=== PATIENT | male | born 1945 | race Caucasian/White ===

== ENCOUNTER → 2016-08-10 | Day surgery (SDC) | payer BC ==
[2016-07-26 15:01] VITALS: BMI 29.0
[~2016-08-10] VITALS: Ht 180.3 cm; Wt 96.4 kg
[~2016-08-10] MED LIST: DILT120C43 PO; LIDOCAINE HCL 2% 2 ML VIAL (20MG/ML) ONE; LPR50X PO; MIDAZOLAM HCL 1 MG/ML 2ML VIAL ONE; ONDANSETRON INJ 2 MG/ML 2 ML VIAL ONE; PRD75 PO; PROPOFOL IV EMULSION 10 MG/ML 20 ML VIAL IV ONE; SIMV-150 PO; SODIUM CHLORIDE 0.9% 500ML 500 ML IV ONE; TRAM-10 PO
[2016-08-10 10:22] VITALS: Ht 180.3 cm; Wt 96.4 kg
--- NOTE | 2016-08-10 11:17 | Endo History and Physical ---
History & Physical Date of Service: Aug 10, 2016. Chief Complaint: SCREENING Referring Physician: ERLINDA LOONEY History of Present Illness 71 yo CM who presents for screening colonoscopy. Past Medical History Atrial Fibrillation, Arthritis, High Cholesterol, Hypertension Past Surgical History Hx Cardiac Surgery: Yes (CARDIOVERSION) Hx Internal Defibrillator: No Hx Pacemaker: No Hx Abdominal Surgery: No Hx of Implantable Prosthesis: No Hx Post-Op Nausea and Vomiting: No Hx Cancer Surgery: No Hx Thoracic Surgery: No Hx Orthopedic: Yes ([facility]) Hx Urinary Tract Surgery: No Family History None Social History Smoking Status: Current Some Day Smoker Hx Substance Use: Yes (OCCASIONAL MARIJUANA (ONCE TIME/COUPLE MONTHS)) Hx Alcohol Use: Yes (2 OZ DRINK/NIGHT) Allergies Coded Allergies: No Known Allergies (Verified , 08/10/16) Current Medications Reported Home Medications Medications Dose Route/Sig Max Daily Dose Days Date Category Cartia Xt (Diltiazem Hcl Coated Beads) 120 Mg Cap 1 Tab PO HS 07/26/16 Reported Ultram (Tramadol HCl) 50 Mg Tab 50 Mg PO Q8H PRN 11/07/14 Reported Metoprolol Tartrate 50 Mg Tab 75 Mg PO BID 11/07/14 Reported Simvastatin 10 Mg Tab 10 Mg PO QPM 11/07/14 Reported Pradaxa * (Dabigatran) 150 Mg Cap 150 Mg PO BID 06/08/11 Reported Vital Signs Weight (Kilograms): 96.36 Height (Feet): 5 Height (Inches): 11 Date Time Temp Pulse Resp B/P Pulse Ox O2 Delivery O2 Flow Rate FiO2 08/10/16 10:40 36.7 82 20 121/87 96 Room Air Physical Exam General Appearance: WD/WN, no apparent distress Respiratory/Chest: Auscultation: breath sounds normal Cardiovascular: Heart Auscultation: RRR Abdomen: Bowel Sounds: normal Inspection & Palpation: soft, non-distended, no tenderness, guarding & rebound Assessment and Plan Assessment: 71 yo CM who presents for screening colonoscopy. Plan: Proceed with colonoscopy.
--- NOTE | 2016-08-10 11:37 | Discharge Instructions ---
Endoscopy Patient Instructions Date / Procedure(s) Performed Aug 10, 2016. Colonoscopy Allergy Information Coded Allergies: No Known Allergies (Verified , 08/10/16) Discharge Date / Findings Aug 10, 2016. Diverticulosis Internal hemorrhoids Medication Instructions Stopped Medication(s): PRADAXA Restart Stopped Medication(s): OK to resume all medications today as prescribed Reported Home Medications Medications Dose Route/Sig Max Daily Dose Days Date Category Cartia Xt (Diltiazem Hcl Coated Beads) 120 Mg Cap 1 Tab PO HS 07/26/16 Reported Ultram (Tramadol HCl) 50 Mg Tab 50 Mg PO Q8H PRN 11/07/14 Reported Metoprolol Tartrate 50 Mg Tab 75 Mg PO BID 11/07/14 Reported Simvastatin 10 Mg Tab 10 Mg PO QPM 11/07/14 Reported Pradaxa * (Dabigatran) 150 Mg Cap 150 Mg PO BID 06/08/11 Reported Provider Instructions Activity Restrictions - No exercising or heavy lifting for 24 hours. - Do not drink alcohol the day of the procedure. - Do not drive a car or operate machinery until the day after the procedure. - Do not make any important decisions or sign important papers in 24 hours after the procedure. Following Day: - Return to full activity which may include returning to work/school. Diet Start your diet with liquids and light foods (jello, soup, juice, toast). Then eat your usual diet if not nauseated. Treatment For Common After Affects For mild abdominal pain, bloating, or excessive gas: - Rest - Eat lightly - Lie on right side Follow-Up Information Follow-up with ERLINDA LOONEY as scheduled Anesthesia Information What You Should Know You have had a procedure that required some medicine to reduce anxiety and discomfort. This treatment is called moderate sedation. After receiving the treatment, you may be sleepy, but you will be able to breathe on your own. The effects of the treatment may last for several hours. Follow these instructions along with Activity/Diet recommendations noted above: * Do NOT do anything where dizziness or clumsiness would be dangerous. * Rest quietly at home today, then you can be up and about tomorrow. * Have a responsible person stay with you the rest of today. * You may have had an I.V. today. If so, you may take the dressing off later today. Recommendations Call your doctor if: * Trouble breathing * Continuous vomiting for more than 24 hours * Temperature above 101 degrees * Severe abdominal pain or bloating * Pain not relieved by pain medicine ordered * There is increased drainage or redness from any incision * A large amount of rectal bleeding greater than 2-3 tablespoons. (If you had a polyp/s removed or have hemorrhoids, a small amount of blood - from the rectum is to be expected.) * You have any unanswered questions or concerns. IN THE EVENT OF A SERIOUS EMERGENCY, GO TO THE NEAREST EMERGENCY ROOM Your discharge instructions were prepared by provider Michael Cotto. Patient Instructions Signature Page Mitchell Farooq Patient (or Guardian) Signature/Date: I have read and understand the instructions given to me by my caregivers. Caregiver/RN/Doctor Signature/Date: The above-named patient and/or guardian has received patient instructions on this date. + Original Patient Signature Page (only) stays with chart. Please make copy for patient.
--- NOTE | 2016-08-10 11:44 | GI REPORT ---
Procedure Date: 08/10/2016 10:52 AM Procedure: Colonoscopy Indications: Screening for colorectal malignant neoplasm Medicines: Monitored Anesthesia Care Complications: No immediate complications. Estimated Blood Loss: Estimated blood loss: none. Procedure: Pre-Anesthesia Assessment: - Prior to the procedure, a History and Physical was performed, and patient medications and allergies were reviewed. The patient's tolerance of previous anesthesia was also reviewed. The risks and benefits of the procedure and the sedation options and risks were discussed with the patient. All questions were answered, and informed consent was obtained. Prior Anticoagulants: The patient has taken Pradaxa (dabigatran), last dose was 3 days prior to procedure. ASA Grade Assessment: II - A patient with mild systemic disease. After reviewing the risks and benefits, the patient was deemed in satisfactory condition to undergo the procedure. After I obtained informed consent, the scope was passed under direct vision. Throughout the procedure, the patient's blood pressure, pulse, and oxygen saturations were monitored continuously. The scope was introduced through the anus and advanced to the terminal ileum. The colonoscopy was performed without difficulty. The patient tolerated the procedure well. The quality of the bowel preparation was good. The terminal ileum, ileocecal valve, appendiceal orifice, and rectum were photographed. Findings: Multiple small-mouthed diverticula were found in the sigmoid colon. Non-bleeding internal hemorrhoids were found during retroflexion. The hemorrhoids were small. Impression: - Diverticulosis in the sigmoid colon. - Non-bleeding internal hemorrhoids. - No specimens collected. Recommendation: - Resume previous diet. - Continue present medications. - Repeat colonoscopy in 10 years for surveillance. - Return to primary care physician as previously scheduled. Michael Cotto, DO 08/10/2016 11:43:52 AM This report has been signed electronically. Note Initiated On: 08/10/2016 10:52 AM I attest to the content of the Intraoperative Record and orders documented therein, exceptions below
[2016-08-10 12:03] VITALS: BP 130/72; PULSE 68; O2SAT 94
--- NOTE | 2016-08-10 14:32 | Anesthesiology Progress Note ---
Anesthesia Post Op Note Date & Time Aug 10, 2016 at 14:32 Vital Signs Pain Intensity: 0 Vital Signs Past 12 Hours Date Time Temp Pulse Resp B/P Pulse Ox O2 Delivery O2 Flow Rate FiO2 08/10/16 12:03 68 16 130/72 94 Room Air 08/10/16 11:48 70 16 122/72 94 Room Air 08/10/16 11:33 82 16 123/79 94 Room Air 08/10/16 10:40 36.7 82 20 121/87 96 Room Air Notes Mental Status: alert / awake / arousable, participated in evaluation Pt Amnestic to Procedure: Yes Nausea / Vomiting: adequately controlled Pain: adequately controlled Airway Patency, RR, SpO2: stable & adequate BP & HR: stable & adequate Hydration State: stable & adequate Anesthetic Complications: no major complications apparent
== END | disposition home or self-care (01) ==
LOC: C.GI 10:09
PROVIDERS: ATTEND Internal Medicine
DX: Z12.11 Encounter for screening for malignant neoplasm of colon (principal); K57.30 Diverticulosis of large intestine without perforation or abscess without bleeding; K64.8 Other hemorrhoids; I10 Essential (primary) hypertension; M19.90 Unspecified osteoarthritis, unspecified site; I48.91 Unspecified atrial fibrillation; E78.00 Pure hypercholesterolemia, unspecified; Z96.642 Presence of left artificial hip joint; F17.200 Nicotine dependence, unspecified, uncomplicated; Z68.29 Body mass index [BMI] 29.0-29.9, adult

== ENCOUNTER → 2017-01-11 | Outpatient (CLI) | payer BC ==
[~2017-01-11] MED LIST changes: -LIDOCAINE HCL 2% 2 ML VIAL (20MG/ML) ONE; -MIDAZOLAM HCL 1 MG/ML 2ML VIAL ONE; -ONDANSETRON INJ 2 MG/ML 2 ML VIAL ONE; -PROPOFOL IV EMULSION 10 MG/ML 20 ML VIAL IV ONE; -SODIUM CHLORIDE 0.9% 500ML 500 ML IV ONE
[2017-01-11 12:18] LABS: ESTIMATED AVERAGE GLUCOSE 143 mg/dl; HA1C FLAG Normal (Normal)
[2017-01-11 12:29] LABS: ALT/SGPT 19 U/L (12-78); AST/SGOT 14 U/L (15-37); BLOOD UREA NITROGEN 12 mg/dl (7-18); BUN/CREATININE RATIO 13.6 (10-20); CALCIUM 9.4 mg/dl (8.5-10.1); CARBON DIOXIDE 30 mmol/L (21-32); CHLORIDE 102 mmol/L (98-107); GLUCOSE 151 mg/dl (70-99); POTASSIUM 4.3 mmol/L (3.5-5.1); SODIUM 137 mmol/L (136-145)
[2017-01-11 12:32] LABS: CHOLESTEROL 147 mg/dl (0-200); HDL CHOLESTEROL 37 mg/dl; LDL CHOLESTEROL CALCULATED 75 mg/dl; TRIGLYCERIDES 174 mg/dl (0-150); VERY LOW DENSITY LIPOPROT CALC 35 mg/dl
== END | disposition home or self-care (01) ==
LOC: C.LAB1850 10:08
PROVIDERS: ATTEND Internal Medicine
DX: R73.9 Hyperglycemia, unspecified (principal); E78.5 Hyperlipidemia, unspecified

== ENCOUNTER → 2017-05-10 | Outpatient (CLI) | payer BC ==
[2017-05-10 13:38] LABS: ESTIMATED AVERAGE GLUCOSE 148 mg/dl; HA1C FLAG Normal (Normal)
[2017-05-10 13:48] LABS: BLOOD UREA NITROGEN 13 mg/dl (7-18); BUN/CREATININE RATIO 14.1 (10-20); CALCIUM 9.3 mg/dl (8.5-10.1); CARBON DIOXIDE 28 mmol/L (21-32); CHLORIDE 104 mmol/L (98-107); CREATININE 0.94 mg/dl (0.60-1.40); GLUCOSE 134 mg/dl (70-99); POTASSIUM 4.1 mmol/L (3.5-5.1); PROSTATE SPECIFIC ANTIGEN 0.992 ng/ml (0.000-4.000); SODIUM 137 mmol/L (136-145)
[2017-05-10 15:12] LABS: LYME DISEASE AB IGG NEG (NEG); LYME DISEASE AB IGM NEG (NEG)
== END | disposition home or self-care (01) ==
LOC: C.LAB1850 11:46
PROVIDERS: ATTEND Internal Medicine
DX: R73.9 Hyperglycemia, unspecified (principal); M25.559 Pain in unspecified hip; Z12.5 Encounter for screening for malignant neoplasm of prostate

== ENCOUNTER → 2017-09-05 | Outpatient (CLI) | payer OTHER ==
[2017-09-05 12:34] LABS: ALBUMIN 3.9 gm/dl (3.4-5.0); ALT/SGPT 26 U/L (12-78); AST/SGOT 26 U/L (15-37); BLOOD UREA NITROGEN 16 mg/dl (7-18); CALCIUM 9.1 mg/dl (8.5-10.1); CARBON DIOXIDE 28 mmol/L (21-32); CHOLESTEROL 173 mg/dl (0-200); CREATININE 1.04 mg/dl (0.60-1.40); GLUCOSE 127 mg/dl (70-99); POTASSIUM 4.1 mmol/L (3.5-5.1); SODIUM 134 mmol/L (136-145)
[2017-09-05 12:35] LABS: HEMOGLOBIN A1C 6.8 % (4.5-5.6)
[2017-09-05 12:36] LABS: ALKALINE PHOSPHATASE 49 U/L (45-117); LDL CHOLESTEROL CALCULATED 75 mg/dl; TOTAL PROTEIN 7.1 gm/dl (6.4-8.2)
== END | disposition home or self-care (01) ==
LOC: C.LAB1850 10:32
PROVIDERS: ATTEND Internal Medicine
DX: E78.5 Hyperlipidemia, unspecified (principal); I10 Essential (primary) hypertension; I48.91 Unspecified atrial fibrillation; R73.9 Hyperglycemia, unspecified

== ENCOUNTER → 2017-10-10 | Outpatient (CLI) | payer OTHER ==
--- NOTE | 2017-10-10 12:37 | DIAGNOSTIC IMAGING REPORT ---
CT LUNG SCREENING, LOW DOSE WITH COMPUTER-AIDED DETECTION (CAD) CLINICAL HISTORY: CURRENT SMOKER COMPARISON STUDY: No previous studies for comparison. CT DOSE: 82.82 mGycm TECHNIQUE: Low-dose helical CT was acquired without intravenous contrast from lung apices to bases and reconstructed at 2.5 mm every 2 mm. CAD was utilized for this study. A dose lowering technique was utilized adhering to the principles of ALARA. FINDINGS: Mild emphysema. No focal lung consolidations to suggest pneumonia. The central airways are patent. There are few scattered tiny subcentimeter indeterminate nodules. Dominant nodule seen within the left lower lobe on image 102. This is described below. No suspicious lytic or blastic osseous lesions. No pleural effusions. No pneumothorax. No mediastinal or hilar lymphadenopathy. Moderate coronary artery calcifications. Normal caliber thoracic aorta. The heart is normal in size. The visualized unenhanced liver, spleen, and adrenal glands are unremarkable. There is a partially visualized gallstone. Nodule 1 Category: 2 Nodule 1 Status: Baseline Nodule 1 Description: Solid Nodule 1 Lesion ID: 1 Nodule 1 Slice Number: 70 Nodule 1 Volume (mm3): 30 Nodule 1 Major Hope mm: 4.4 Nodule 1 Minor Hope mm: 3.3 IMPRESSION: 1. A few scattered subcentimeter pulmonary nodules with the largest in the left lower lobe as described above. Please refer to the recommendations below for follow-up. 2. Mild emphysema. 3. Cholelithiasis. CAD FINDINGS: Overall Lung RADS Category: 2 Lung RADS Management Recommendation: Continue annual lung cancer screening. Lung RADS Follow Up Date: 2018-10-10 Lung RADS Nodule ID: 1 Electronically signed by: Prashant Blanco M.D. 10/10/2017 12:36 PM Dictated Date/Time: 10/10/2017 12:30 PM
== END | disposition home or self-care (01) ==
LOC: C.CTS 12:05
PROVIDERS: ATTEND Internal Medicine
DX: F17.210 Nicotine dependence, cigarettes, uncomplicated (principal); R91.8 Other nonspecific abnormal finding of lung field; K80.20 Calculus of gallbladder without cholecystitis without obstruction

== ENCOUNTER → 2017-12-26 | Outpatient (CLI) | payer OTHER ==
[2017-12-26 10:07] LABS: HEMOGLOBIN A1C 6.6 % (4.5-5.6)
[2017-12-26 10:43] LABS: BLOOD UREA NITROGEN 14 mg/dl (7-18); CALCIUM 8.9 mg/dl (8.5-10.1); CARBON DIOXIDE 29 mmol/L (21-32); CREATININE 1.05 mg/dl (0.60-1.40); GLUCOSE 137 mg/dl (70-99); POTASSIUM 4.4 mmol/L (3.5-5.1); SODIUM 137 mmol/L (136-145)
== END | disposition home or self-care (01) ==
LOC: C.LAB1850 07:42
PROVIDERS: ATTEND Internal Medicine
DX: E78.5 Hyperlipidemia, unspecified (principal); R73.9 Hyperglycemia, unspecified

== ENCOUNTER 2020-09-12 12:07 | Inpatient (IN) ==
[2020-09-12] MEDS ORDERED: LIDOCAINE/EPINEPHRINE 1% 20 ML VIAL INFIL ONE (12:41)
--- NOTE | 2020-09-12 13:00 | Emergency Department Note ---
Impression & Plan Syncope, Atrial fibrillation, Facial laceration, Acute head trauma ED Provider Note NAME: GRICEL WILEY AGE: 75 SEX: M : 1945 ARRIVES VIA: Ambulance INFORMANT: [Patient][] ED PROVIDER(S): [Jared Veras MD] CHIEF COMPLAINT: Syncope HISTORY OF PRESENT ILLNESS: The patient is a 75-year-old male who presents to the ER after a syncopal spell. The patient states that around 2-1/2 hours ago he was sitting at the table with his when he began to feel dizzy and faint. He states that his saw his head drop forward and he slumped down a bit but did not truly lose consciousness. After around 20 seconds or so, he felt fine. There was no chest pain, no shortness of breath or palpitations. The patient states that later, he was sitting in a chair when he began to feel the same. He felt that the sensation was stronger though. He lost his vision. He slumped forward out of the chair and struck his face on a piece of furniture. Again, no chest pain or shortness of breath. The patient states that he does have a cut now to his left face where he struck the furniture. He has some mild pain here. He also has some right neck discomfort. All the pain is rated as mild and he does not want any pain medication. The patient does take Eliquis for A. fib. Typically, his heart rate is in the 60s or 70s when he is at his doctor's office. He states his tetanus is current. He has lately been in baseline health. No recent medication changes. REVIEW OF SYSTEMS: See HPI for pertinent positives and negatives. A total of ten systems were reviewed and were otherwise negative. PMHx/PSHx: See Below SOCIAL HISTORY: See Below. PHYSICAL EXAM: GENERAL: Patient is in no acute distress. HEENT: The patient has an abrasion to the left face. There is a 2.5 cm vertical laceration within the abrasion. No bony step-off. Extraocular muscles intact and full. The patient's bite is normal. NECK: No stridor, no adenopathy, he is tender along the right trapezius, no midline bony discomfort, trachea is midline. LUNGS: Clear to auscultation bilaterally, no wheeze, no rhonchi, breath sounds equal. HEART: No murmurs, irregular rhythm, normal rate. ABDOMEN: Soft, nontender, bowel sounds positive, no hernias, no peritonitis. EXTREMITIES: No cyanosis or edema, full range of motion of all the joints without pain or difficulty, no signs for acute trauma. NEUROLOGIC: Oriented x 3, no acute motor or sensory deficits, no focal weakness. SKIN: No rash, no jaundice, no diaphoresis. DIFFERENTIAL DIAGNOSIS: Infection, dehydration, metabolic abnormality, hypo/hyperglycemia, electrolyte disturbance, anemia, hypoxia, cardiac sources, dysrhythmia, intracerebral event, toxicologic issues, stroke, TIA, as well as other pathologies. EMERGENCY DEPARTMENT COURSE/PROCEDURES: ECG: Indication was syncope. The ECG shows atrial fibrillation with a rate of 61. There is nonspecific ST change diffusely. The QTc is 448. There is no ST elevation, no PVCs. Continuous Cardiac Monitoring: An order was placed for continuous cardiac monitoring. The monitor shows a rate of 61 with atrial fibrillation. MEDICAL DECISION MAKING: There is no leukocytosis or worrisome anemia. There is a normal platelet count. Glucose very slightly elevated, no kidney failure. No worrisome liver enzyme elevation. The patient appears to be in a euthyroid state. ECG shows atrial fibrillation, no acute ischemic change. Cardiac enzyme testing x1 is not consistent with acute cardiac injury. Urinalysis does not show infection. Covid and influenza testing was negative. Chest from did not show pneumonia or CHF. Brain CT shows no acute bleed or mass-effect. C-spine CT shows no acute fracture. Facial CT shows no acute fracture. Patient presents with 2 syncopal events today. He has no history of any similar complaints. The patient's laceration across his face was repaired by my PA, please see his note. I did speak with cardiology. Given the patient's history of A. fib, given these 2 events today, dysrhythmia was a concern. Hospitalization/monitoring was felt warranted. I spoke to the patient and case management. The on-call hospitalist has been consulted. Past Med/Surg History Medical History Cardiomyopathy Diverticulosis Internal hemorrhoids Low back pain Osteoarthritis of hip Surgical History History of hip replacement, total History of skin surgery Family History Sister Colorectal cancer Mother Lung cancer Father Lung cancer Other Myocardial infarction Denies family history of Ovarian cancer Prostate cancer Breast cancer Social History Smoking Status: Current every day smoker Tobacco Type: Cigarettes Age Started Using Tobacco: 14; Cigarettes Per Day: 1-2; Second Hand Exposure: Yes (CHILDHOOD); Hx Alcohol Use: Yes Alcohol type: beer and hard liquor Alcohol Intake Frequency: 2-3 x/Week Hx Substance Use: Yes Prescribed Medications: Marijuana Non-Prescribed Med ications: Marijuana Preferred Language: [place] Visual Impairment: No Limitations Hearing Ability: Normal marital status: Current Living Situation: Spouse current occupational status: employed Feels Safe at Home: Yes Dental Care, Regularly: Yes Physical Activity Frequency: 3-4 Times per Week Physical Activity Frequency Comment: golfing, weights, cardio Seatbelt Use: always Sunscreen Use: Yes Allergies Allergies Allergy/AdvReac Type Severity Reaction Status Date / Time No Known Allergies Allergy Unknown Verified 09/08/20 10:59 Home Meds Previous Rx's Medication Instructions Recorded acetaminophen 325 mg capsule 325 mg PO Q4H PRN #90 cap 02/05/19 sildenafil 50 mg tablet 50 mg PO DAILY PRN #10 tab 12/13/19 apixaban 5 mg tablet 5 mg PO BID #180 tab 12/14/19 metoprolol tartrate 100 mg tablet 100 mg PO BID #180 tab 12/14/19 simvastatin 40 mg tablet 40 mg PO QPM #90 tab 12/14/19 meclizine 25 mg tablet 25 mg PO TID PRN #30 tab 03/11/20 tramadol 50 mg tablet 50 mg PO TID PRN #90 tab 08/12/20 Results & Data (ED) Vital Signs Vital Signs - 24 hr 09/12/20 12:07 09/12/20 12:20 09/12/20 12:23 Temperature 36.6 C Temperature Source Oral Pulse Rate 58 L 73 58 L Pulse Rate [Right Finger] Pulse Rate from SpO2 Sensor 64 Pulse Rhythm Irregular Pulse Strength Normal Respiratory Rate 18 12 17 Respiratory Effort / Characteristics Non-Labored Spontaneous Respiratory Depth Normal Respiratory Pattern Regular Blood Pressure 180/110 H 180/110 H Blood Pressure [Right Arm] Blood Pressure Mean 133 133 Blood Pressure Mean [Right Arm] Blood Pressure Position Lying Pulse Oximetry 94 96 Oxygen Delivery Method Room Air Sepsis Recent Fever Within 48 Hours No Sepsis New/Unexplained Change in Mental Status N/A Sepsis Action Taken by Nursing No Action Required 09/12/20 12:30 09/12/20 12:31 09/12/20 12:40 Temperature Temperature Source Pulse Rate 60 64 67 Pulse Rate [Right Finger] Pulse Rate from SpO2 Sensor 56 L 71 69 Pulse Rhythm Pulse Strength Respiratory Rate 13 18 19 Respiratory Effort / Characteristics Respiratory Depth Respiratory Pattern Blood Pressure 173/89 H Blood Pressure [Right Arm] Blood Pressure Mean 117 Blood Pressure Mean [Right Arm] Blood Pressure Position Pulse Oximetry 93 97 96 Oxygen Delivery Method Sepsis Recent Fever Within 48 Hours Sepsis New/Unexplained Change in Mental Status Sepsis Action Taken by Nursing 09/12/20 12:50 09/12/20 12:51 09/12/20 13:00 Temperature Temperature Source Pulse Rate 46 L 61 65 Pulse Rate [Right Finger] Pulse Rate from SpO2 Sensor 57 L 65 Pulse Rhythm Pulse Strength Respiratory Rate 19 18 18 Respiratory Effort / Characteristics Respiratory Depth Respiratory Pattern Blood Pressure 174/89 H Blood Pressure [Right Arm] Blood Pressure Mean 117 Blood Pressure Mean [Right Arm] Blood Pressure Position Pulse Oximetry 97 96 96 Oxygen Delivery Method Room Air Sepsis Recent Fever Within 48 Hours Sepsis New/Unexplained Change in Mental Status Sepsis Action Taken by Nursing 09/12/20 13:24 09/12/20 13:25 09/12/20 13:26 Temperature Temperature Source Pulse Rate Pulse Rate [Right Finger] Pulse Rate from SpO2 Sensor 80 58 L 63 Pulse Rhythm Pulse Strength Respiratory Rate 13 18 18 Respiratory Effort / Characteristics Respiratory Depth Respiratory Pattern Blood Pressure 186/96 H Blood Pressure [Right Arm] Blood Pressure Mean 126 Blood Pressure Mean [Right Arm] Blood Pressure Position Pulse Oximetry 91 95 96 Oxygen Delivery Method Sepsis Recent Fever Within 48 Hours Sepsis New/Unexplained Change in Mental Status Sepsis Action Taken by Nursing 09/12/20 13:30 09/12/20 13:31 09/12/20 13:40 Temperature Temperature Source Pulse Rate Pulse Rate [Right Finger] Pulse Rate from SpO2 Sensor 60 73 Pulse Rhythm Pulse Strength Respiratory Rate 20 20 21 Respiratory Effort / Characteristics Respiratory Depth Respiratory Pattern Blood Pressure 151/91 H Blood Pressure [Right Arm] Blood Pressure Mean 111 Blood Pressure Mean [Right Arm] Blood Pressure Position Pulse Oximetry 93 95 Oxygen Delivery Method Sepsis Recent Fever Within 48 Hours Sepsis New/Unexplained Change in Mental Status Sepsis Action Taken by Nursing 09/12/20 13:50 09/12/20 14:00 09/12/20 14:01 Temperature Temperature Source Pulse Rate Pulse Rate [Right Finger] Pulse Rate from SpO2 Sensor 63 62 69 Pulse Rhythm Pulse Strength Respiratory Rate 15 16 24 Respiratory Effort / Characteristics Respiratory Depth Respiratory Pattern Blood Pressure 133/79 Blood Pressure [Right Arm] Blood Pressure Mean 97 Blood Pressure Mean [Right Arm] Blood Pressure Position Pulse Oximetry 96 93 94 Oxygen Delivery Method Sepsis Recent Fever Within 48 Hours Sepsis New/Unexplained Change in Mental Status Sepsis Action Taken by Nursing 09/12/20 14:10 09/12/20 15:52 Temperature Temperature Source Pulse Rate Pulse Rate [Right Finger] 79 Pulse Rate from SpO2 Sensor 64 Pulse Rhythm Pulse Strength Respiratory Rate 18 16 Respiratory Effort / Characteristics Respiratory Depth Respiratory Pattern Blood Pressure Blood Pressure [Right Arm] 162/108 H Blood Pressure Mean Blood Pressure Mean [Right Arm] 126 Blood Pressure Position Pulse Oximetry 94 96 Oxygen Delivery Method Room Air Sepsis Recent Fever Within 48 Hours Sepsis New/Unexplained Change in Mental Status Sepsis Action Taken by [facility] Medications Current Medication List: was personally reviewed by me Laboratory Data Attestation: I reviewed the patient's lab results. Result diagrams: 09/12/20 12:26 09/12/20 12:26 Lab Results 09/12/20 09/12/20 09/12/20 Range/Units 12:20 12:26 12:26 WBC 6.52 (4.8-10.8) K/uL RBC 4.76 (4.7-6.1) M/uL Hgb 16.2 (14.0-18.0) g/dL Hct 43.9 (42-52) % MCV 92.2 (80-100) fL MCH 34.0 (25-34) pg MCHC 36.9 H (32-36) g/dL RDW Std Deviation 41.9 (36.4-46.3) fL RDW Coeff of [place] 12.4 (11.5-14.5) % Plt Count 219 (130-400) K/uL MPV 10.0 (7.4-10.4) fL Immature Gran % (Auto) 0.3 % Neut % (Auto) 61.3 % Lymph % (Auto) 24.4 % [place] % (Auto) 10.6 % Eos % (Auto) 2.6 % Baso % (Auto) 0.8 % Neut # (Auto) 4.00 (1.4-6.5) K/uL Lymph # (Auto) 1.59 (1.2-3.4) K/uL [place] # (Auto) 0.69 H (0.11-0.59) K/uL Eos # (Auto) 0.17 (0-0.5) K/uL Baso # (Auto) 0.05 (0-0.2) K/uL Immature Gran # (Auto) 0.02 (0.00-0.02) K/uL Sodium 138 (136-145) mmol/L Potassium 4.5 (3.5-5.1) mmol/L Chloride 105 (98-107) mmol/L Carbon Dioxide 28 (21-32) mmol/L Anion Gap 5.0 (3-11) BUN 13 (7-18) mg/dl Creatinine 0.94 (0.6-1.4) mg/dl Est Cr Clr Drug Dosing 83.8 ml/min Est GFR ( Amer) 92.9 Est GFR (Non-Af Amer) 80.1 BUN/Creatinine Ratio 13.8 (10-20) Glucose 249 H (70-99) mg/dl POC Glucose 258 H (70-99) mg/dl Calcium 9.0 (8.5-10.1) mg/dl Magnesium 2.0 (1.8-2.4) mg/dl Total Bilirubin 1.5 H (0.2-1) mg/dl AST 20 (15-37) U/L ALT 30 (12-78) U/L Alkaline Phosphatase 52 (45-117) U/L Troponin I < 0.015 (0-0.045) ng/ml Total Protein 7.0 (6.4-8.2) gm/dl Albumin 3.6 (3.4-5.0) gm/dl Globulin 3.4 (2.5-4.0) gm/dl Albumin/Globulin Ratio 1.1 (0.9-2) TSH 1.800 (0.300-4.500) uIu/ml Urine Color Urine Appearance (Clear) Urine pH (4.5-7.5) Ur Specific [place] (1.000-1.030) Urine Protein (Negative) Urine Glucose (UA) (Negative) Urine Ketones (Negative) Urine Blood (Negative) Urine Nitrite (Negative) Urine Bilirubin (Negative) Urine Urobilinogen (Negative) Ur Leukocyte Esterase (Negative) COVID-19 Eval Order SARS-CoV-2 (PCR) (Negative) Influenza Type A (PCR) (Neg) Influenza Type B (PCR) (Neg) RSV (RT-PCR) (Neg) 09/12/20 09/12/20 09/12/20 Range/Units 13:25 15:47 15:47 WBC (4.8-10.8) K/uL RBC (4.7-6.1) M/uL Hgb (14.0-18.0) g/dL Hct (42-52) % MCV (80-100) fL MCH (25-34) pg MCHC (32-36) g/dL RDW Std Deviation (36.4-46.3) fL RDW Coeff of Wali (11.5-14.5) % Plt Count (130-400) K/uL MPV (7.4-10.4) fL Immature Gran % (Auto) % Neut % (Auto) % Lymph % (Auto) % [place] % (Auto) % Eos % (Auto) % Baso % (Auto) % Neut # (Auto) (1.4-6.5) K/uL Lymph # (Auto) (1.2-3.4) K/uL [place] # (Auto) (0.11-0.59) K/uL Eos # (Auto) (0-0.5) K/uL Baso # (Auto) (0-0.2) K/uL Immature Gran # (Auto) (0.00-0.02) K/uL Sodium (136-145) mmol/L Potassium (3.5-5.1) mmol/L Chloride (98-107) mmol/L Carbon Dioxide (21-32) mmol/L Anion Gap (3-11) BUN (7-18) mg/dl Creatinine (0.6-1.4) mg/dl Est Cr Clr Drug Dosing ml/min Est GFR ( Amer) Est GFR (Non-Af Amer) BUN/Creatinine Ratio (10-20) Glucose (70-99) mg/dl POC Glucose (70-99) mg/dl Calcium (8.5-10.1) mg/dl Magnesium (1.8-2.4) mg/dl Total Bilirubin (0.2-1) mg/dl AST (15-37) U/L ALT (12-78) U/L Alkaline Phosphatase (45-117) U/L Troponin I (0-0.045) ng/ml Total Protein (6.4-8.2) gm/dl Albumin (3.4-5.0) gm/dl Globulin (2.5-4.0) gm/dl Albumin/Globulin Ratio (0.9-2) TSH (0.300-4.500) uIu/ml Urine Color Yellow Urine Appearance Clear (Clear) Urine pH 6.5 (4.5-7.5) Ur Specific [place] 1.012 (1.000-1.030) Urine Protein Negative (Negative) Urine Glucose (UA) 1+ H (Negative) Urine Ketones Negative (Negative) Urine Blood Negative (Negative) Urine Nitrite Negative (Negative) Urine Bilirubin Negative (Negative) Urine Urobilinogen Negative (Negative) Ur Leukocyte Esterase Negative (Negative) COVID-19 Eval Order CovFluRsv at [facility] SARS-CoV-2 (PCR) NEGATIVE (Negative) Influenza Type A (PCR) Negative (Neg) Influenza Type B (PCR) Negative (Neg) RSV (RT-PCR) Negative (Neg) Administered Medications Discontinued Medications Lidocaine/Epinephrine (Lidocaine/Epinephrine 1% 20 Ml Vial) 20 ml INFIL NOW ONE Stop: 09/12/20 12:42 Last Admin: 09/12/20 14:12 Dose: 20 ml Documented by: [id number] Tramadol HCl (Tramadol Hcl 50 Mg Tablet) 50 mg PO NOW STA Stop: 09/12/20 16:17 Last Admin: 09/12/20 16:47 Dose: 50 mg Documented by: [id number] Imaging Data Radiologist's Impression: Cervical Spine CT 09/12/20 12:41 CT OF THE CERVICAL SPINE WITHOUT CONTRAST CLINICAL HISTORY: Neck pain following fall. COMPARISON STUDY: No previous studies for comparison. TECHNIQUE: Helical axial images of the cervical spine were obtained without IV contrast. Sagittal and coronal reconstructions were viewed. Automated exposure control was utilized for the study. A dose lowering technique was utilized adhering to the principles of ALARA. FINDINGS: Alignment of the cervical spine is anatomic. Vertebral body heights are maintained. No acute cervical spine fracture or subluxation is present. There is no prevertebral edema. Facet joints are intact. There is severe multilevel facet arthrosis. Moderate to severe multilevel disc space narrowing and osteophytosis is most pronounced at C5-C6 and C6-C7. Slight anterolisthesis of C4 on C5 is likely due to facet arthrosis. IMPRESSION: No acute cervical spine fracture or subluxation. ACT 112: Negative or not required by law. Electronically signed by: Mario Montague M.D. 09/12/2020 1:24 PM Chest X-Ray 09/12/20 12:41 XR chest 1V portable HISTORY: weakness COMPARISON: Chest 11/07/2014. FINDINGS: No pneumothorax. No pleural effusions. No focal lung consolidations to suggest pneumonia. No evidence for pulmonary edema. Cardiac silhouette is mildly enlarged. IMPRESSION: Mild cardiomegaly. Otherwise, no acute process within the chest. ACT 112: Negative or not required by law. Electronically signed by: Prashant Blanco M.D. 09/12/2020 1:[address] 09/12/20 12:41 CT SCAN OF THE FACIAL BONES WITHOUT IV CONTRAST CLINICAL HISTORY: Fall. Facial injury. COMPARISON STUDY: Unenhanced CT of the brain performed concurrently on 09/12/2020. TECHNIQUE: High-resolution CT scan of the facial bones is performed. Images are reviewed in the axial, sagittal, and coronal planes. IV contrast was not administered for this examination. A dose lowering technique was utilized adhering to the principles of ALARA. CT DOSE: 1113.40 mGy.cm FINDINGS: The skeletal structures are osteopenic. There is no evidence of facial bone fracture. The bony orbits are intact and the orbital contents are within normal limits noting bilateral ocular lens implants. The zygomatic arches, nasal bones, and pterygoid plates are preserved. The maxilla and mandible are intact. There are no layering blood products within the paranasal sinuses. Trace mucosal thickening seen within the maxillary antra and the sphenoid sinuses. The remaining paranasal sinuses are clear. The mastoid air cells are well pneumatized. The visualized calvarium and upper cervical spine are maintained. Partially imaged brain parenchyma is within normal limits noting age-related involutional change. There is mild left periorbital soft tissue contusion. IMPRESSION: There is no evidence of facial bone fracture. ACT 112: Negative or not required by law. Electronically signed by: Jared Vidales M.D. 09/12/2020 1:[address] 09/12/20 12:41 CT head/brain wo con CLINICAL HISTORY: Head pain status post trauma COMPARISON STUDY: No previous studies for comparison. TECHNIQUE: Axial CT of the brain is performed from the vertex to the skull base. IV contrast was not administered for this examination. A dose lowering technique was utilized adhering to the principles of ALARA. CT DOSE: FINDINGS: No intra or extra-axial mass lesions are visualized. There is no CT evidence of acute cortical infarction. There is no evidence of midline shift. There is no acute hemorrhage. No calvarial fractures are visualized. There are minor white matter hypodensities likely on a small vessel basis. There is no evidence of pathologic ventricular dilatation. There is no evidence of acute sinusitis IMPRESSION: No acute intracranial findings ACT 112: Negative or not required by law. Electronically signed by: Abhijeet Brandon M.D. 09/12/2020 1:22 PM Head Trauma GCS Score: 15 Discharge Plan Visit Data Chief Complaint: Syncope Stated Complaint: Dizzy/Syncope ED Provider: Jared Veras Discharge Problem: Syncope, Atrial fibrillation, Facial laceration, Acute head trauma Patient Disposition: Admitted As Inpatient Condition: Fair Forms Stand Alone Forms: [employer] [facility] Prescriptions Prescriptions: No Action acetaminophen [Tylenol] 325 mg capsule 325 mg PO Q4H PRN (Reason: pain) Qty: 90 RF: 0 sildenafil [Viagra] 50 mg tablet 50 mg PO DAILY PRN (Reason: sexual activity) Qty: 10 RF: 0 Eliquis 5 mg tablet 5 mg PO BID Qty: 180 RF: 3 metoprolol tartrate 100 mg tablet 100 mg PO BID Qty: 180 RF: 3 simvastatin 40 mg tablet 40 mg PO QPM Qty: 90 RF: 3 tramadol 50 mg tablet 50 mg PO TID PRN (Reason: pain) Qty: 90 RF: 0 meclizine 25 mg tablet 25 mg PO TID PRN (Reason: dizziness) Qty: 30 RF: 0 Referrals Referrals: Fabian Tracy MD [Primary Care Provider] - Discharge Problem: Syncope Qualifiers: Syncope type: unspecified Qualified Code(s): R55 - Syncope and collapse Atrial fibrillation Qualifiers: Atrial fibrillation type: longstanding persistent Qualified Code(s): I48.11 - Longstanding persistent atrial fibrillation Facial laceration Qualifiers: Encounter type: initial encounter Qualified Code(s): S01.81XA - Laceration without foreign body of other part of head, initial encounter Acute head trauma Qualifiers: Encounter type: initial encounter Qualified Code(s): S09.90XA - Unspecified injury of head, initial encounter
[2020-09-12 13:02] LABS: Basophils # (auto) 0.05 K/uL (0-0.2); Basophils % (auto) 0.8 %; Eosinophils # (auto) 0.17 K/uL (0-0.5); Eosinophils % (auto) 2.6 %; Hematocrit (blood only) 43.9 % (42-52); Hemoglobin 16.2 g/dL (14.0-18.0); Immature Granulocytes # (auto) 0.02 K/uL (0.00-0.02); Immature Granulocytes % (auto) 0.3 %; Lymphocytes # (auto) 1.59 K/uL (1.2-3.4); Lymphocytes % (auto) 24.4 %; Mean Corpuscular Hgb Conc 36.9 g/dL (32-36); Mean Corpuscular Volume 92.2 fL (80-100); Monocytes # (auto) 0.69 K/uL (0.11-0.59); Monocytes % (auto) 10.6 %; Neutrophils % (auto) 61.3 %; Platelet Count 219 K/uL (130-400); RDW Coefficient of Variation 12.4 % (11.5-14.5); RDW Standard Deviation 41.9 fL (36.4-46.3); Red Blood Count 4.76 M/uL (4.7-6.1); White Blood Count 6.52 K/uL (4.8-10.8)
--- NOTE | 2020-09-12 13:03 | XRay Report ---
XR chest 1V portable HISTORY: weakness COMPARISON: Chest 11/07/2014. FINDINGS: No pneumothorax. No pleural effusions. No focal lung consolidations to suggest pneumonia. N o evidence for pulmonary edema. Cardiac silhouette is mildly enlarged. IMPRESSION: Mild cardiomegaly. Otherwise, no acute process within the chest. ACT 112: Negative or not required by law. Electronically signed by: Prashant Blanco M.D. 09/12/2020 1:02 PM
[2020-09-12 13:19] LABS: Alanine Aminotransferase 30 U/L (12-78); Albumin Level 3.6 gm/dl (3.4-5.0); Aspartate Aminotransferase 20 U/L (15-37); BUN Creatinine Ratio 13.8 (10-20); Blood Urea Nitrogen 13 mg/dl (7-18); Carbon Dioxide 28 mmol/L (21-32); Chloride 105 mmol/L (98-107); Creatinine Clr Calc Pharmacy 83.8 ml/min; Est GFR (African American) 92.9; Est GFR (Non-African American) 80.1; Glucose 249 mg/dl (70-99); Potassium 4.5 mmol/L (3.5-5.1); Sodium 138 mmol/L (136-145)
--- NOTE | 2020-09-12 13:23 | CT Scan Report ---
CT head/brain wo con CLINICAL HISTORY: Head pain status post trauma COMPARISON STUDY: No previous studies for comparison. TECHNIQUE: Axial CT of the brain is performed from the vertex to the skull base. IV contrast was not administered for this examination. A dose lowering technique was utilized adhering to the principles of ALARA. CT DOSE: FINDINGS: No intra or extra-axial mass lesions are visualized. There is no CT evidence of acute cortical infarc tion. There is no evidence of midline shift. There is no acute hemorrhage. No calvarial fractures ar e visualized. There are minor white matter hypodensities likely on a small vessel basis. There is no evidence of pathologic ventricular dilatation. There is no evidence of acute sinusitis IMPRESSION: No acute intracranial findings ACT 112: Negative or not required by law. Electronically signed by: Abhijeet Brandon M.D. 09/12/2020 1:22 PM
--- NOTE | 2020-09-12 13:25 | CT Scan Report ---
CT OF THE CERVICAL SPINE WITHOUT CONTRAST CLINICAL HISTORY: Neck pain following fall. COMPARISON STUDY: No previous studies for comparison. TECHNIQUE: Helical axial images of the cervical spine were obtained without IV contrast. Sagittal a nd coronal reconstructions were viewed. Automated exposure control was utilized for the study. A do se lowering technique was utilized adhering to the principles of ALARA. FINDINGS: Alignment of the cervical spine is anatomic. Vertebral body heights are maintained. No acut e cervical spine fracture or subluxation is present. There is no prevertebral edema. Facet joints are intact. There is severe multilevel facet arthrosis. Moderate to severe multilevel disc space narrow ing and osteophytosis is most pronounced at C5-C6 and C6-C7. Slight anterolisthesis of C4 on C5 is li jennifer due to facet arthrosis. IMPRESSION: No acute cervical spine fracture or subluxation. ACT 112: Negative or not required by law. Electronically signed by: Mario Montague M.D. 09/12/2020 1:24 PM
[2020-09-12 13:30] LABS: Albumin Globulin Ratio 1.1 (0.9-2); Alkaline Phosphatase 52 U/L (45-117); Bilirubin,Total 1.5 mg/dl (0.2-1); Globulin 3.4 gm/dl (2.5-4.0); Troponin I < 0.015 ng/ml (0-0.045)
--- NOTE | 2020-09-12 13:30 | CT Scan Report ---
CT SCAN OF THE FACIAL BONES WITHOUT IV CONTRAST CLINICAL HISTORY: Fall. Facial injury. COMPARISON STUDY: Unenhanced CT of the brain performed concurrently on 09/12/2020. TECHNIQUE: High-resolution CT scan of the facial bones is performed. Images are reviewed in the axia l, sagittal, and coronal planes. IV contrast was not administered for this examination. A dose lower ing technique was utilized adhering to the principles of ALARA. CT DOSE: 1113.40 mGy.cm FINDINGS: The skeletal structures are osteopenic. There is no evidence of facial bone fracture. The b janis orbits are intact and the orbital contents are within normal limits noting bilateral ocular lens implants. The zygomatic arches, nasal bones, and pterygoid plates are preserved. The maxilla and kumar ible are intact. There are no layering blood products within the paranasal sinuses. Trace mucosal thi ckening seen within the maxillary antra and the sphenoid sinuses. The remaining paranasal sinuses are clear. The mastoid air cells are well pneumatized. The visualized calvarium and upper cervical spine are maintained. Partially imaged brain parenchyma is within normal limits noting age-related involut ional change. There is mild left periorbital soft tissue contusion. IMPRESSION: There is no evidence of facial bone fracture. ACT 112: Negative or not required by law. Electronically signed by: Jared Vidales M.D. 09/12/2020 1:28 PM
[2020-09-12 13:38] LABS: Appearance Urine Clear (Clear); Bilirubin Urine Negative (Negative); Blood Urine Negative (Negative); Color Urine Yellow; Glucose Urine UA 1+ (Negative); Ketones Urine Negative (Negative); Leukocyte Esterase Urine Negative (Negative); Nitrite Urine Negative (Negative); Protein Urine Negative (Negative); Specific Gravity Urine 1.012 (1.000-1.030); Urobilinogen Urine Negative (Negative); pH Urine 6.5 (4.5-7.5)
--- NOTE | 2020-09-12 15:19 | History & Physical Report ---
Date of Service September 12, 2020 Assessment & Plan (1) Syncope and collapse: patient with syncope and collapse resulting in face abrasion and laceration - Review of symptoms and exam, cardiovascular in nature - Neurological exam is normal and percussing symptoms do not match neurological component - Admit to telemetry- will hold Lopressor- Notify hospitalist team if rate >100 - QT- 446 normal electrolytes and no ventricular ectopy seen on tele review - Up out of bed with assistance - ECHO in morning - Cardiology consulted, appreciate their recommendations neuro checks q4 hours for possible concussive effects or DASH since on Apixaban (2) Type 2 diabetes mellitus: not treated, patient has been having on going discussions with his PCP - HGBa1c in the morning - BG>250 on labs in the EMD- Patient had 2 yogurts this morning and V8 - Dextrose sticks ACH/HS - Loose sliding scale insulin coverage- correction factor 40, with 1:20 carb ration - DMII carb consistent diet (3) Atrial fibrillation: As above, remains in atrial fibrilation- variable rate. - Did not rates in the high 50s - Hold metoprolol - Telemetry monitoring (4) Hyperlipidemia: Continue zocor 40 mg (5) Low back pain: Chronich- relived with tramadol - usually uses 1-3 times per week - Continue tramadol (6) Abrasion of face: Bacitracin BID - ICE to face contiusion PRN 20 min on and 20 min off (7) Laceration of face: Sutured in the EMD - Bacitracin - Tetanus is up to date - 2018 (Td) (8) Muscle pain: Left trapezius contusion - ICE 20 min on and 20 min off - Tylenol - Tramadol - Lidocaine patch History of Present Illness Chief Complaint: passed out Primary Care Provider: Fabian Tracy MD 75 YOM with past medical history of HLD, AFib on Apixaban, Basal Cell Carcinoma, and squamous cell carcinoma of the skin; Cardiomyopathy thought to be attributed to tachycardia, that is listed as resolved. Patient is occasional smoker of cigarrets, and occasional marijuana use. His last use of marijuana was on Tuesday of this week. Patient came to the emergency room today after calling 911 because he experienced 2 episodes of passing out today. Patient describes the first episode while he was eating breakfast, that he just starting feeling "weird" like his brain was getting fuzzy and then his vision became very blurry and per his , he had a slow decent with his head forward down to the table and he came to. He denied any hot feelings, auras, change in smell or taste with these or loss of bowel or bladder and denied any seizure like activity. He did not want to come to the emergency room after that episode so he went upstairs to work on his computer. This was about 2 hours after his previous episode, he felt the feeling coming on again, with brain feeling fuzzy and vision blurring, he tried sitting up in the chair and next thing he remembers is being on the floor with blood on the carpet. He got up and called 911 and came to the emergency room. In the emergency room, he had an ECG done, head CT, face CT, cervical CT, and a chest X-ray done. Dr. Veras spoke with cardiology Dr. Zhang as well. He has a laceration to his left face that will be require sutures and is being done in the EMD. The patient denies any actual loss of vision or fugax occurring, that everything just got too blurry to see, he has an abrasion as well to his left face and left trapezius muscle pain. His cervical spine was cleared CT and clinically. Patient will be admitted to telemetry unit, hold his BB, cardiology consult and continue to monitor. Allergies Allergy/AdvReac Type Severity Reaction Status Date / Time No Known Allergies Allergy Unknown Verified 09/08/20 10:59 Home Medications Medication Instructions Recorded Confirmed Type acetaminophen 325 mg capsule 325 mg PO Q4H PRN #90 cap 02/05/19 09/12/20 Rx sildenafil 50 mg tablet 50 mg PO DAILY PRN #10 tab 12/13/19 09/12/20 Rx apixaban 5 mg tablet 5 mg PO BID #180 tab 12/14/19 09/12/20 Rx metoprolol tartrate 100 mg tablet 100 mg PO BID #180 tab 12/14/19 09/12/20 Rx simvastatin 40 mg tablet 40 mg PO QPM #90 tab 12/14/19 09/12/20 Rx meclizine 25 mg tablet 25 mg PO TID PRN #30 tab 03/11/20 09/12/20 Rx tramadol 50 mg tablet 50 mg PO TID PRN #90 tab 08/12/20 09/12/20 Rx Past Med/Surg History Medical History Cardiomyopathy Diverticulosis Internal hemorrhoids Low back pain Osteoarthritis of hip Surgical History History of hip replacement, total History of skin surgery Family History Sister Colorectal cancer Mother Lung cancer Father Lung cancer Other Myocardial infarction Denies family history of Ovarian cancer Prostate cancer Breast cancer Social History Smoking Status: Current every day smoker Tobacco Type: Cigarettes Age Started Using Tobacco: 14; Cigarettes Per Day: 1-2; Second Hand Exposure: Yes (CHILDHOOD); Hx Alcohol Use: Yes Alcohol type: beer and hard liquor Alcohol Intake Frequency: 2-3 x/Week Hx Substance Use: Yes Prescribed Medications: Marijuana Non-Prescribed Medications: Marijuana Preferred Language: Cypriot Visual Impairment: No Limitations Hearing Ability: Normal marital status: Current Living Situation: Spouse current occupational status: employed Feels Safe at Home: Yes Dental Care, Regularly: Yes Physical Activity Frequency: 3-4 Times per Week Physical Activity Frequency Comment: golfing, weights, cardio Seatbelt Use: always Sunscreen Use: Yes Review of Systems Review of Systems: REVIEW OF SYSTEMS: Constitutional: No fever, sweats or chills Eyes:(+) blurry vision as per HPI, No diplopia, no worsening vision ENT: normal hearing, no trouble swallowing Respiratory: No cough, sputum, dyspnea at rest or on exertion Cardiovascular: No chest pain, tightness or palpitations Abdomen: No pain, nausea, vomiting, diarrhea or constipation Musculoskeletal: No joint pain, calf pain, swelling Neurologic: (+) lightheadedness and passing out per HPI, No weakness, numbness/tingling, or balance problems Psychiatric: No anxiety or depression Skin: No rash or itch Physical Exam Physical Exam: PHYSICAL EXAM: General: awake, alert, no apparent distress Head: Normocephalic, small laceration to left face, abrasion to left face. ENT: PERRL, EOMI, no pharyngeal exudate, mucous membranes moist Neuro: AAO x 3, speech clear and appropriate, strength intact bilaterally 5/5, sensation intact and equal all extremities and dermatomes, no pronator drift Chest: equal rise and fall of the chest, no accessory muscle use, no heaves or thrills, Clear to auscultation, on room air, Cardiac: Regular rate and rhythm, telemetry reviewed a-fib variable rte 55-70, no ectopy, skin warm dry, cap refill <3 seconds, peripheral pulses +2 no JVD, no murmur, no edema GI: NABS x 4 quadrants, soft, nontender to palpation, no rebound, guarding or tenderness : Spontaneously voiding, no pain, no CVA tenderness, Extremities: Normal inspection, no peripheral edema or erythema, calfs nontender to palpation Psych: Normal mood and affect Skin: abrasion to left face with contusion and laceration. Laceration now sutured. Results & Data Results & Data ([facility]) Vital Signs (Past 12 Hours) Vital Signs Temp Pulse Resp BP Pulse Ox 09/12/20 14:10 18 94 09/12/20 14:01 24 133/79 94 09/12/20 14:00 16 93 09/12/20 13:50 15 96 09/12/20 13:40 21 95 09/12/20 13:31 20 151/91 H 93 09/12/20 13:30 20 09/12/20 13:26 18 96 09/12/20 13:25 18 186/96 H 95 09/12/20 13:24 13 91 09/12/20 13:00 65 18 174/89 H 96 09/12/20 12:51 61 18 96 09/12/20 12:50 46 L 19 97 09/12/20 12:40 67 19 96 09/12/20 12:31 64 18 97 09/12/20 12:30 60 13 173/89 H 93 09/12/20 12:23 58 L 17 180/110 H 96 09/12/20 12:20 73 12 09/12/20 12:07 36.6 C 58 L 18 180/110 H 94 Laboratory Results Abnormal lab results 09/12/20 09/12/20 09/12/20 Range/Units 12:20 12:26 12:26 MCHC 36.9 H (32-36) g/dL [place] # (Auto) 0.69 H (0.11-0.59) K/uL Glucose 249 H (70-99) mg/dl POC Glucose 258 H (70-99) mg/dl Total Bilirubin 1.5 H (0.2-1) mg/dl Urine Glucose (UA) (Negative) 09/12/20 Range/Units 13:25 MCHC (32-36) g/dL [place] # (Auto) (0.11-0.59) K/uL Glucose (70-99) mg/dl POC Glucose (70-99) mg/dl Total Bilirubin (0.2-1) mg/dl Urine Glucose (UA) 1+ H (Negative) Diagnostic Findings CT head/brain wo con CLINICAL HISTORY: Head pain status post trauma COMPARISON STUDY: No previous studies for comparison. TECHNIQUE: Axial CT of the brain is performed from the vertex to the skull base. IV contrast was not administered for this examination. A dose lowering technique was utilized adhering to the principles of ALARA. CT DOSE: FINDINGS: No intra or extra-axial mass lesions are visualized. There is no CT evidence of acute cortical infarction. There is no evidence of midline shift. There is no acute hemorrhage. No calvarial fractures are visualized. There are minor white matter hypodensities likely on a small vessel basis. There is no evidence of pathologic ventricular dilatation. There is no evidence of acute sinusitis IMPRESSION: No acute intracranial findings CT SCAN OF THE FACIAL BONES WITHOUT IV CONTRAST CLINICAL HISTORY: Fall. Facial injury. COMPARISON STUDY: Unenhanced CT of the brain performed concurrently on . TECHNIQUE: High-resolution CT scan of the facial bones is performed. Images are reviewed in the axial, sagittal, and coronal planes. IV contrast was not administered for this examination. A dose lowering technique was utilized adhering to the principles of ALARA. CT DOSE: 1113.40 mGy.cm FINDINGS: The skeletal structures are osteopenic. There is no evidence of facial bone fracture. The bony orbits are intact and the orbital contents are within normal limits noting bilateral ocular lens implants. The zygomatic arches, nasal bones, and pterygoid plates are preserved. The maxilla and mandible are intact. There are no layering blood products within the paranasal sinuses. Trace mucosal thickening seen within the maxillary antra and the sphenoid sinuses. The remaining paranasal sinuses are clear. The mastoid air cells are well pneumatized. The visualized calvarium and upper cervical spine are maintained. Partially imaged brain parenchyma is within normal limits noting age-related involutional change. There is mild left periorbital soft tissue contusion. IMPRESSION: There is no evidence of facial bone fracture. XR chest 1V portable HISTORY: weakness COMPARISON: Chest 11/07/2014. FINDINGS: No pneumothorax. No pleural effusions. No focal lung consolidations to suggest pneumonia. No evidence for pulmonary edema. Cardiac silhouette is mildly enlarged. IMPRESSION: Mild cardiomegaly. Otherwise, no acute process within the chest. Medications Administered Discontinued Medications Lidocaine/Epinephrine (Lidocaine/Epinephrine 1% 20 Ml Vial) 20 ml INFIL NOW ONE Stop: 09/12/20 12:42 Last Admin: 09/12/20 14:12 Dose: 20 ml Documented by: [id number] ECG Additional Comments: Atrial fibrillation Right bundle branch block Left anterior fascicular block Bifascicular block Possible Lateral infarct , age undetermined Abnormal ECG When compared with ECG of 07-NOV-2014 11:24, Borderline criteria for Lateral infarct are now Present Nonspecific T wave abnormality, worse in Lateral leads QT: 446 Code Status & VTE Plan Code Status CODE: FULL VTE: SCD's, Apixaban VTE Prophylaxis Plan VTE Prophylaxis will be ordered: Yes Supervising Physician Co-Signing Physician Notes I supervised OMER Sandoval on this admission. I examined the patient today independently of him. I discussed the plan of care with him with the plan being as written in his note except for any following changes/exceptions: None. 75yo M w/ hx of afib who presents after two syncopal episodes. Both episodes had prodrome to them with vision changes, lightheadedness. No chest pain. Second episode was faster than the first, and he hit his head on his desk causing a laceration. On my interview, he reports some continued shoulder pain. Agree with PA that symptoms do not sound neurologic in nature (ie seizure or CVA). Cardiology alerted in the ED with concern for cardiac etiology, though he reports no chest pain or palpitations prior to syncopal events. Possibly bradycardia and/or hypotension from his relatively high dose beta mook. 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 Atrial fibrillation I48.19 Atrial fibrillation type: persistent (not longstanding) Hyperlipidemia E78.5 Hyperlipidemia type: unspecified Low back pain M54.5; G89.29 Back pain laterality: unspecified Chronicity: chronic Sciatica presence: without sciatica Abrasion of face S00.81XA Encounter type: initial encounter Laceration of face S01.81XA Encounter type: initial encounter Muscle pain M79.10 (1) Low back pain Back pain laterality: unspecified Chronicity: chronic Sciatica presence: without sciatica Qualified Code(s): M54.5 - Low back pain; G89.29 - Other chronic pain (2) Type 2 diabetes mellitus Diabetes mellitus complication status: without complication Diabetes mellitus group home insulin use: without group home use Qualified Code(s): E11.9 - Type 2 diabetes mellitus without complications (3) Atrial fibrillation Atrial fibrillation type: persistent (not longstanding) Qualified Code(s): I48.19 - Other persistent atrial fibrillation (4) Hyperlipidemia Hyperlipidemia type: unspecified Qualified Code(s): E78.5 - Hyperlipidemia, unspecified (5) Laceration of face Encounter type: initial encounter Qualified Code(s): S01.81XA - Laceration without foreign body of other part of head, initial encounter (6) Abrasion of face Encounter type: initial encounter Qualified Code(s): S00.81XA - Abrasion of other part of head, initial encounter
--- NOTE | 2020-09-12 15:28 | Emergency Department Note ---
Impression & Plan Syncope, Atrial fibrillation, Facial laceration, Acute head trauma ED Provider Note Patient was seen and evaluated at the request of my attending, Dr. Veras, for a left side facial laceration. Please see Dr. Veras dictation for full history of present illness and emergency department course outside of this repair. In short the patient had a fall/syncopal episode today. He struck the left side face off a piece of furniture and has a 2.5 cm fairly vertical laceration along the left side face/cheek. There are superficial abrasions around this however the dominant 2.5 cm laceration does gape and will require repair. Laceration repair. Patient elects to have their laceration repaired. Verbal consent was obtained to perform the procedure. There is an abundance of materials available for the procedure. Patient is not allergic to latex. Using sterile technique the wound was cleaned with Betadine. The area was sterilely draped. 3 ml of 1% buffered lidocaine with epi was used to anesthetize the left side facial laceration. Once the patient was anesthetized, the wound was copiously irrigated under pressure with sterile saline. The wound was explored and there were no deep structures injured such as tendons, bone, or significant blood vessels. The laceration was repaired using 4 simple interrupted 6-0 nylon sutures with the wound edges being well approximated. Hemostasis was achieved. The area was cleaned with sterile saline and dressed with bacitracin ointment and bandage. Patient tolerated the procedure well without complications. Blood loss was negligible. Past Med/Surg History Medical History (Updated 09/13/20 @ 12:28 by Eddi Jernigan MD) Atrial fibrillation, permanent Bifascicular block Cardiomyopathy Diverticulosis Hyperlipidemia Hypertension Internal hemorrhoids Low back pain Osteoarthritis of hip Type 2 diabetes mellitus Surgical History History of hip replacement, total History of skin surgery Family History Sister Colorectal cancer Mother Lung cancer Father Lung cancer Other Myocardial infarction Denies family history of Ovarian cancer Prostate cancer Breast cancer Social History Smoking Status: Current every day smoker Tobacco Type: Cigarettes Age Started Using Tobacco: 14; Cigarettes Per Day: 1-2; Second Hand Exposure: Yes (CHILDHOOD); Hx Alcohol Use: Yes Alcohol type: beer and hard liquor Alcohol Intake Frequency: 2-3 x/Week Hx Substance Use: No Preferred Language: Citizen Of [place] Communication Ability: Effective Communication Ability Comment: WNL Visual Impairment: No Limitations Hearing Ability: Normal Audit Specialist Required: No marital status: Current Living Situation: Spouse current occupational status: employed Other Information That Helps Us Care for You: No Feels Safe at Home: Yes Safety Concerns: Feels Safe At This Time Dental Care, Regularly: Yes Physical Activity Frequency: 3-4 Times per Week Physical Activity Frequency Comment: golfing, weights, cardio Seatbelt Use: always Sunscreen Use: Yes Assistive Devices: None Allergies Allergies Allergy/AdvReac Type Severity Reaction Status Date / Time No Known Allergies Allergy Unknown Verified 09/08/20 10:59 Home Meds Previous Rx's Medication Instructions Recorded acetaminophen 325 mg capsule 325 mg PO Q4H PRN #90 cap 02/05/19 sildenafil 50 mg tablet 50 mg PO DAILY PRN #10 tab 12/13/19 apixaban 5 mg tablet 5 mg PO BID #180 tab 12/14/19 metoprolol tartrate 100 mg tablet 100 mg PO BID #180 tab 12/14/19 simvastatin 40 mg tablet 40 mg PO QPM #90 tab 12/14/19 meclizine 25 mg tablet 25 mg PO TID PRN #30 tab 03/11/20 tramadol 50 mg tablet 50 mg PO TID PRN #90 tab 08/12/20 Results & Data (ED) Vital Signs Vital Signs - 24 hr 09/12/20 13:24 09/12/20 13:25 09/12/20 13:26 Pulse Rate from SpO2 Sensor 80 58 L 63 Respiratory Rate 13 18 18 Blood Pressure 186/96 H Blood Pressure Mean 126 Pulse Oximetry 91 95 96 09/12/20 13:30 09/12/20 13:31 09/12/20 13:40 Pulse Rate from SpO2 Sensor 60 73 Respiratory Rate 20 20 21 Blood Pressure 151/91 H Blood Pressure Mean 111 Pulse Oximetry 93 95 09/12/20 13:50 09/12/20 14:00 09/12/20 14:01 Pulse Rate from SpO2 Sensor 63 62 69 Respiratory Rate 15 16 24 Blood Pressure 133/79 Blood Pressure Mean 97 Pulse Oximetry 96 93 94 09/12/20 14:10 Pulse Rate from SpO2 Sensor 64 Respiratory Rate 18 Blood Pressure Blood Pressure Mean Pulse Oximetry 94 Laboratory Data Result diagrams: 09/13/20 05:34 09/13/20 05:34 Lab Results 09/12/20 09/12/20 09/12/20 Range/Units 12:20 12:26 12:26 WBC 6.52 (4.8-10.8) K/uL RBC 4.76 (4.7-6.1) M/uL Hgb 16.2 (14.0-18.0) g/dL Hct 43.9 (42-52) % MCV 92.2 (80-100) fL MCH 34.0 (25-34) pg MCHC 36.9 H (32-36) g/dL RDW Std Deviation 41.9 (36.4-46.3) fL RDW Coeff of Wali 12.4 (11.5-14.5) % Plt Count 219 (130-400) K/uL MPV 10.0 (7.4-10.4) fL Immature Gran % (Auto) 0.3 % Neut % (Auto) 61.3 % Lymph % (Auto) 24.4 % Bailey % (Auto) 10.6 % Eos % (Auto) 2.6 % Baso % (Auto) 0.8 % Neut # (Auto) 4.00 (1.4-6.5) K/uL Lymph # (Auto) 1.59 (1.2-3.4) K/uL Bailey # (Auto) 0.69 H (0.11-0.59) K/uL Eos # (Auto) 0.17 (0-0.5) K/uL Baso # (Auto) 0.05 (0-0.2) K/uL Immature Gran # (Auto) 0.02 (0.00-0.02) K/uL Sodium 138 (136-145) mmol/L Potassium 4.5 (3.5-5.1) mmol/L Chloride 105 (98-107) mmol/L Carbon Dioxide 28 (21-32) mmol/L Anion Gap 5.0 (3-11) BUN 13 (7-18) mg/dl Creatinine 0.94 (0.6-1.4) mg/dl Est Cr Clr Drug Dosing 83.8 ml/min Est GFR ( Amer) 92.9 Est GFR (Non-Af Amer) 80.1 BUN/Creatinine Ratio 13.8 (10-20) Glucose 249 H (70-99) mg/dl POC Glucose 258 H (70-99) mg/dl Calcium 9.0 (8.5-10.1) mg/dl Magnesium 2.0 (1.8-2.4) mg/dl Total Bilirubin 1.5 H (0.2-1) mg/dl AST 20 (15-37) U/L ALT 30 (12-78) U/L Alkaline Phosphatase 52 (45-117) U/L Troponin I < 0.015 (0-0.045) ng/ml Total Protein 7.0 (6.4-8.2) gm/dl Albumin 3.6 (3.4-5.0) gm/dl Globulin 3.4 (2.5-4.0) gm/dl Albumin/Globulin Ratio 1.1 (0.9-2) TSH 1.800 (0.300-4.500) uIu/ml Urine Color Urine Appearance (Clear) Urine pH (4.5-7.5) Ur Specific [place] (1.000-1.030) Urine Protein (Negative) Urine Glucose (UA) (Negative) Urine Ketones (Negative) Urine Blood (Negative) Urine Nitrite (Negative) Urine Bilirubin (Negative) Urine Urobilinogen (Negative) Ur Leukocyte Esterase (Negative) COVID-19 Eval Order SARS-CoV-2 (PCR) (Negative) Influenza Type A (PCR) (Neg) Influenza Type B (PCR) (Neg) RSV (RT-PCR) (Neg) 09/12/20 09/12/20 09/12/20 Range/Units 13:25 15:47 15:47 WBC (4.8-10.8) K/uL RBC (4.7-6.1) M/uL Hgb (14.0-18.0) g/dL Hct (42-52) % MCV (80-100) fL MCH (25-34) pg MCHC (32-36) g/dL RDW Std Deviation (36.4-46.3) fL RDW Coeff of Wali (11.5-14.5) % Plt Count (130-400) K/uL MPV (7.4-10.4) fL Immature Gran % (Auto) % Neut % (Auto) % Lymph % (Auto) % Bailey % (Auto) % Eos % (Auto) % Baso % (Auto) % Neut # (Auto) (1.4-6.5) K/uL Lymph # (Auto) (1.2-3.4) K/uL Bailey # (Auto) (0.11-0.59) K/uL Eos # (Auto) (0-0.5) K/uL Baso # (Auto) (0-0.2) K/uL Immature Gran # (Auto) (0.00-0.02) K/uL Sodium (136-145) mmol/L Potassium (3.5-5.1) mmol/L Chloride (98-107) mmol/L Carbon Dioxide (21-32) mmol/L Anion Gap (3-11) BUN (7-18) mg/dl Creatinine (0.6-1.4) mg/dl Est Cr Clr Drug Dosing ml/min Est GFR ( Amer) Est GFR (Non-Af Amer) BUN/Creatinine Ratio (10-20) Glucose (70-99) mg/dl POC Glucose (70-99) mg/dl Calcium (8.5-10.1) mg/dl Magnesium (1.8-2.4) mg/dl Total Bilirubin (0.2-1) mg/dl AST (15-37) U/L ALT (12-78) U/L Alkaline Phosphatase (45-117) U/L Troponin I (0-0.045) ng/ml Total Protein (6.4-8.2) gm/dl Albumin (3.4-5.0) gm/dl Globulin (2.5-4.0) gm/dl Albumin/Globulin Ratio (0.9-2) TSH (0.300-4.500) uIu/ml Urine Color Yellow Urine Appearance Clear (Clear) Urine pH 6.5 (4.5-7.5) Ur Specific [place] 1.012 (1.000-1.030) Urine Protein Negative (Negative) Urine Glucose (UA) 1+ H (Negative) Urine Ketones Negative (Negative) Urine Blood Negative (Negative) Urine Nitrite Negative (Negative) Urine Bilirubin Negative (Negative) Urine Urobilinogen Negative (Negative) Ur Leukocyte Esterase Negative (Negative) COVID-19 Eval Order CovFluRsv at [facility] SARS-CoV-2 (PCR) NEGATIVE (Negative) Influenza Type A (PCR) Negative (Neg) Influenza Type B (PCR) Negative (Neg) RSV (RT-PCR) Negative (Neg) Administered Medications Acetaminophen (Acetaminophen 325 Mg Tab) 650 mg PO Q4H PRN PRN Reason: Pain or Fever Stop: 10/12/20 20:18 Last Admin: 09/13/20 08:43 Dose: 650 mg Documented by: [id number] Apixaban (Apixaban 5 Mg Tablet) 5 mg PO BID MAGUI Stop: 10/12/20 20:59 Last Admin: 09/13/20 08:44 Dose: 5 mg Documented by: [id number] Admin: 09/12/20 21:51 Dose: 5 mg Documented by: [id number] Insulin Aspart (Insulin Aspart 100 Units/Ml 3 Ml Pen) 0 units SC ACHS MAGUI Stop: 10/12/20 20:18 Last Admin: 09/13/20 12:41 Dose: 3 units Documented by: [id number] Cosigned by: [id number] Admin: 09/13/20 08:46 Dose: 2 units Documented by: [id number] Cosigned by: [id number] Admin: 09/12/20 22:26 Dose: 1 units Documented by: [id number] Cosigned by: [id number] Admin: 09/12/20 21:57 Dose: 1 units Documented by: [id number] Cosigned by: [id number] Lidocaine (Lidocaine 5% 1 Patch) 1 patch TD QAM MAGUI Stop: 10/13/20 08:59 Last Admin: 09/13/20 08:43 Dose: 1 patch Documented by: [id number] Metoprolol Tartrate (Metoprolol Tartrate 25 Mg Tab) 25 mg PO BID MAGUI Stop: 10/13/20 08:59 Last Admin: 09/13/20 09:30 Dose: 25 mg Documented by: [id number] Simvastatin (Simvastatin 40 Mg Tab) 40 mg PO QPM MAGUI Stop: 10/12/20 20:59 Last Admin: 09/12/20 21:53 Dose: 40 mg Documented by: [id number] Tramadol HCl (Tramadol Hcl 50 Mg Tablet) 50 mg PO TID PRN PRN Reason: pain Stop: 10/12/20 20:18 Last Admin: 09/13/20 12:40 Dose: 50 mg Documented by: [id number] Admin: 09/13/20 03:50 Dose: 50 mg Documented by: [id number] Admin: 09/12/20 21:49 Dose: 50 mg Documented by: [id number] Discontinued Medications Lidocaine/Epinephrine (Lidocaine/Epinephrine 1% 20 Ml Vial) 20 ml INFIL NOW ONE Stop: 09/12/20 12:42 Last Admin: 09/12/20 14:12 Dose: 20 ml Documented by: [id number] Tramadol HCl (Tramadol Hcl 50 Mg Tablet) 50 mg PO NOW STA Stop: 09/12/20 16:17 Last Admin: 09/12/20 16:47 Dose: 50 mg Documented by: [id number] Imaging Data Radiologist's Impression: Cervical Spine CT 09/12/20 12:41 CT OF THE CERVICAL SPINE WITHOUT CONTRAST CLINICAL HISTORY: Neck pain following fall. COMPARISON STUDY: No previous studies for comparison. TECHNIQUE: Helical axial images of the cervical spine were obtained without IV contrast. Sagittal and coronal reconstructions were viewed. Automated exposure control was utilized for the study. A dose lowering technique was utilized adhering to the principles of ALARA. FINDINGS: Alignment of the cervical spine is anatomic. Vertebral body heights are maintained. No acute cervical spine fracture or subluxation is present. There is no prevertebral edema. Facet joints are intact. There is severe mul tilevel facet arthrosis. Moderate to severe multilevel disc space narrowing and osteophytosis is most pronounced at C5-C6 and C6-C7. Slight anterolisthesis of C4 on C5 is likely due to facet arthrosis. IMPRESSION: No acute cervical spine fracture or subluxation. ACT 112: Negative or not required by law. Electronically signed by: Mario Montague M.D. 09/12/2020 1:24 PM Chest X-Ray 09/12/20 12:41 XR chest 1V portable HISTORY: weakness COMPARISON: Chest 11/07/2014. FINDINGS: No pneumothorax. No pleural effusions. No focal lung consolidations to suggest pneumonia. No evidence for pulmonary edema. Cardiac silhouette is mildly enlarged. IMPRESSION: Mild cardiomegaly. Otherwise, no acute process within the chest. ACT 112: Negative or not required by law. Electronically signed by: Prashant Blanco M.D. 09/12/2020 1:[address] 09/12/20 12:41 CT SCAN OF THE FACIAL BONES WITHOUT IV CONTRAST CLINICAL HISTORY: Fall. Facial injury. COMPARISON STUDY: Unenhanced CT of the brain performed concurrently on 09/12/2020. TECHNIQUE: High-resolution CT scan of the facial bones is performed. Images are reviewed in the axial, sagittal, and coronal planes. IV contrast was not administered for this examination. A dose lowering technique was utilized adhering to the principles of ALARA. CT DOSE: 1113.40 mGy.cm FINDINGS: The skeletal structures are osteopenic. There is no evidence of facial bone fracture. The bony orbits are intact and the orbital contents are within normal limits noting bilateral ocular lens implants. The zygomatic arches, nasal bones, and pterygoid plates are preserved. The maxilla and mandible are intact. There are no layering blood products within the paranasal sinuses. Trace mucosal thickening seen within the maxillary antra and the sphenoid sinuses. The remaining paranasal sinuses are clear. The mastoid air cells are well pneumatized. The visualized calvarium and upper cervical spine are maintained. Partially imaged brain parenchyma is within normal limits noting age-related involutional change. There is mild left periorbital soft tissue contusion. IMPRESSION: There is no evidence of facial bone fracture. ACT 112: Negative or not required by law. Electronically signed by: Jared Vidales M.D. 09/12/2020 1:[address] 09/12/20 12:41 CT head/brain wo con CLINICAL HISTORY: Head pain status post trauma COMPARISON STUDY: No previous studies for comparison. TECHNIQUE: Axial CT of the brain is performed from the vertex to the skull base. IV contrast was not administered for this examination. A dose lowering technique was utilized adhering to the principles of ALARA. CT DOSE: FINDINGS: No intra or extra-axial mass lesions are visualized. There is no CT evidence of acute cortical infarction. There is no evidence of midline shift. There is no acute hemorrhage. No calvarial fractures are visualized. There are minor white matter hypodensities likely on a small vessel basis. There is no evidence of pathologic ventricular dilatation. There is no evidence of acute sinusitis IMPRESSION: No acute intracranial findings ACT 112: Negative or not required by law. Electronically signed by: Abhijeet Brandon M.D. 09/12/2020 1:22 PM Discharge Plan Visit Data Chief Complaint: Syncope Stated Complaint: Dizzy/Syncope ED Provider: Feese,Jared J Discharge Problem: Syncope, Atrial fibrillation, Facial laceration, Acute head trauma Patient Disposition: Admitted As Inpatient Condition: Fair Discharge Instructions Interventions: ED Discharge Assessment Last Done: 09/12/20 19:27 Discharge Problem: Syncope Qualifiers: Syncope type: unspecified Qualified Code(s): R55 - Syncope and collapse Atrial fibrillation Qualifiers: Atrial fibrillation type: longstanding persistent Qualified Code(s): I48.11 - Longstanding persistent atrial fibrillation Facial laceration Qualifiers: Encounter type: initial encounter Qualified Code(s): S01.81XA - Laceration wi thout foreign body of other part of head, initial encounter Acute head trauma Qualifiers: Encounter type: initial encounter Qualified Code(s): S09.90XA - Unspecified injury of head, initial encounter
[2020-09-12] MEDS ORDERED: traMADol HCL 50 MG TABLET PO STA (16:16)
--- NOTE | 2020-09-12 16:24 | Electrocardiogram Report ---
Test Reason : Blood Pressure : / mmHG Vent. Rate : 061 BPM Atrial Rate : 214 BPM P-R Int : 000 ms QRS Dur : 144 ms QT Int : 446 ms P-R-T Axes : 000 -79 202 degrees QTc Int : 448 ms Atrial fibrillation Right bundle branch block Left anterior fascicular block Bifascicular block Possible Lateral infarct , age undetermined Abnormal ECG When compared with ECG of 07-NOV-2014 11:24, Borderline criteria for Lateral infarct are now Present Nonspecific T wave abnormality, worse in Lateral leads Confirmed by Blas Zhang ([id number]) on 09/12/2020 4:24:01 PM Referred By: REFERRED SELF Confirmed By:Edgar Zhang
[2020-09-12 16:58] LABS: Influenza A virus by PCR Negative (Neg); Influenza B virus by PCR Negative (Neg); RSV by PCR Negative (Neg); SARS CoV2 RNA(COVID-19) InHosp NEGATIVE (Negative)
[2020-09-12] MEDS ORDERED: GLUCOSE 40% GEL 15 GM TUBE PO PRN (20:19)
[2020-09-12] MEDS ORDERED: CARBOHYDRATES FOR HYPOGLYCEMIA PO PRN (20:19)
[2020-09-12] MEDS ORDERED: GLUCOSE 10 TABS/TUBE PO PRN (20:19)
[2020-09-12] MEDS ORDERED: DEXTROSE 50% 50 ML SYRINGE IV PRN (20:19)
[2020-09-12] MEDS ORDERED: GLUCAGON FOR INJ 1 MG VIAL SQ PRN (20:19)
[2020-09-12] MEDS ORDERED: ONDANSETRON INJ 2 MG/ML 2 ML VIAL IV PRN (20:19)
[2020-09-12] MEDS: traMADol HCL 50 MG TABLET PO PRN (21:49)
[2020-09-12] MEDS: APIXABAN 5 MG TABLET PO SCH (21:51)
[2020-09-12] MEDS: SIMVASTATIN 40 MG TAB PO SCH (21:53)
[2020-09-12] MEDS: INSULIN ASPART 100 UNITS/ML 3 ML PEN SC SCH ×2 (21:57→22:26)
[2020-09-13] MEDS: traMADol HCL 50 MG TABLET PO PRN ×3 (03:50→22:01)
[2020-09-13 06:12] LABS: Basophils # (auto) 0.02 K/uL (0-0.2); Basophils % (auto) 0.3 %; Eosinophils # (auto) 0.17 K/uL (0-0.5); Eosinophils % (auto) 2.3 %; Hemoglobin 15.2 g/dL (14.0-18.0); Immature Granulocytes # (auto) 0.01 K/uL (0.00-0.02); Immature Granulocytes % (auto) 0.1 %; Lymphocytes # (auto) 2.28 K/uL (1.2-3.4); Lymphocytes % (auto) 30.5 %; Mean Corpuscular Hemoglobin 33.8 pg (25-34); Mean Corpuscular Hgb Conc 36.2 g/dL (32-36); Mean Corpuscular Volume 93.3 fL (80-100); Mean Platelet Volume 9.8 fL (7.4-10.4); Monocytes # (auto) 0.88 K/uL (0.11-0.59); Monocytes % (auto) 11.8 %; Neutrophils # (auto) 4.11 K/uL (1.4-6.5); Platelet Count 215 K/uL (130-400); RDW Coefficient of Variation 12.5 % (11.5-14.5); RDW Standard Deviation 42.6 fL (36.4-46.3); White Blood Count 7.47 K/uL (4.8-10.8)
[2020-09-13 06:28] LABS: Estimated Average Glucose 183 mg/dl
[2020-09-13 06:49] LABS: BUN Creatinine Ratio 16.7 (10-20); Creatinine Clr Calc Pharmacy 96.7 ml/min; Est GFR (African American) 102.2; Est GFR (Non-African American) 88.2; Magnesium 1.9 mg/dl (1.8-2.4); Potassium 4.2 mmol/L (3.5-5.1)
--- NOTE | 2020-09-13 08:29 | Hospitalist Progress Note ---
Date of Service September 13, 2020 Assessment & Plan (1) Syncope and collapse: patient with syncope and collapse resulting in face abrasion and laceration->traumatic syncope -Concern for cardiogenic component to his syncope - Admit to telemetry given hypertension restarting his Lopressor much lower dose 25 mg instead of 100 - ECHO currently pending - Cardiology consulted, appreciate their recommendations considering pacemaker insertion Continue neurological surveillance given the patient is on anticoagulation (2) Type 2 diabetes mellitus: not treated, patient has been having on going discussions with his PCP - HGBa1c 8 will need diabetic education - BG>250 on labs in the EMD- Patient had 2 yogurts this morning and V8 - Dextrose sticks ACH/HS - Loose sliding scale insulin coverage- correction factor 40, with 1:20 carb ration - DMII carb consistent diet (3) Atrial fibrillation: As above, remains in atrial fibrilation- variable rate. No untoward effects with reduction of his beta-mook -Resuming at 25 mg twice a day instead of 100 -Continue telemetry monitoring (4) Hyperlipidemia: Continue zocor 40 mg (5) Low back pain: Chronic occasional treated with tramadol with good results (6) Abrasion of face: Bacitracin BID - ICE to face contiusion PRN 20 min on and 20 min off Sutures removed in 5 days (7) Laceration of face: Sutured in the EMD - Bacitracin - Tetanus is up to date - 2018 (Td) (8) Muscle pain: Right trapezius contusion - ICE 20 min on and 20 min off - Tylenol - Tramadol - Lidocaine patch Admission and Anticipated Discharge Date Admission Date: September 12, 2020 Subjective Patient had another "spell" while he was reading today. He is significant trauma to his left face where he fell and smashed his face. His right sternocleidomastoid muscle is tender likely from the countercoup effect of his falling and hitting his face. He spoke to cardiology there is concern with a bifascicular block and traumatic syncope he should benefit from a pacemaker. Review of Systems Review of Systems: Mild distress and fatigue no headache, blurry or double vision Patient has tenderness to his left cheek there are sutures in place and a large abrasion contusion on his left cheek and forehead no speech or swallowing issues no chest pain, pressure or palpitations no shortness of breath, cough or wheezes no abdominal pain, nausea or vomiting, diarrhea or constipation no dysuria, hematuria or frequency no focal joint pain or swelling no back pain, CVA tenderness or radicular pain no focal signs of weakness or numbness or altered sensation no complaints of anxiety or depression.. Physical Exam Physical Exam: The patient appeared well nourished and normally developed. Vital signs as documented. Head exam is he has abrasion contusion and sutured laceration of his left cheek Neck is without JVD, thyromegaly, or carotid bruits right sternocleidomastoid muscles tender to examine and palpation. Lungs are clear to auscultation, no focal loss of breath sounds Cardiac exam, Rhythm is regular.. No murmurs, rubs or gallops. Abdominal exam reveals normal bowel sounds, soft non tender, no masses Extremities are nonedematous and both pedal pulses are present Neurologic exam is alert and oriented, no focal loss of strength or sensation Skin is without other areas of bruises or rashes other than his left face Psychologically is without concerns for anxiety or depression Results & Data Results & Data ([facility]) Vital Signs (Past 12 Hours) Vital Signs Temp Pulse Pulse Resp BP BP Pulse Ox 09/13/20 07:24 97.7 F 73 18 174/106 H 174/110 H 95 09/13/20 07:00 66 09/13/20 03:52 71 130/90 09/12/20 23:29 98.4 F 75 20 171/104 H 93 PG Care Time/CCT Total # of Minutes Spent Total Time Spent with Patient: Total time spent is greater than 50% in coordination of care (as documented) at patient's floor/unit and/or counseling patient: Coding Level of Care Code 69439 Subseq Hosp Care Lvl 3 Diagnoses Syncope and collapse R55 Type 2 diabetes mellitus E11.9 Diabetes mellitus complication status: without complication Diabetes mellitus 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 press adjuster insulin use: without long-term use Atrial fibrillation I48.19 Atrial fibrillation type: persistent (not longstanding) Hyperlipidemia E78.5 Hyperlipidemia type: unspecified Low back pain M54.5; G89.29 Back pain laterality: unspecified Chronicity: chronic Sciatica presence: without sciatica Abrasion of face S00.81XA Encounter type: initial encounter Laceration of face S01.81XA Encounter type: initial encounter Muscle pain M79.10 (1) Low back pain Back pain laterality: unspecified Chronicity: chronic Sciatica presence: w ithout sciatica Qualified Code(s): M54.5 - Low back pain; G89.29 - Other chronic pain (2) Type 2 diabetes mellitus Diabetes mellitus complication status: without complication Diabetes mellitus extruding press adjuster insulin use: without extruding press adjuster use Qualified Code(s): E11.9 - Type 2 diabetes mellitus without complications (3) Atrial fibrillation Atrial fibrillation type: persistent (not longstanding) Qualified Code(s): I48.19 - Other persistent atrial fibrillation (4) Hyperlipidemia Hyperlipidemia type: unspecified Qualified Code(s): E78.5 - Hyperlipidemia, unspecified (5) Laceration of face Encounter type: initial encounter Qualified Code(s): S01.81XA - Laceration without foreign body of other part of head, initial encounter (6) Abrasion of face Encounter type: initial encounter Qualified Code(s): S00.81XA - Abrasion of other part of head, initial encounter
[2020-09-13] MEDS: LIDOCAINE 5% 1 PATCH TD SCH (08:43)
[2020-09-13] MEDS: ACETAMINOPHEN 325 MG TAB PO PRN (08:43)
[2020-09-13] MEDS: APIXABAN 5 MG TABLET PO SCH ×2 (08:44→21:58)
[2020-09-13] MEDS: INSULIN ASPART 100 UNITS/ML 3 ML PEN SC SCH ×4 (08:46→22:02)
[2020-09-13] MEDS: METOPROLOL TARTRATE 25 MG TAB PO SCH ×2 (09:30→21:58)
--- NOTE | 2020-09-13 12:18 | Cardiology Consultation ---
Date of Consultation September 13, 2020 Assessment & Plan (1) Syncope and collapse: (2) Bifascicular block: (3) Atrial fibrillation, permanent: (4) Hypertension: ASSESSMENT/PLAN: 1. Syncope: Syncope concerning for cardiac etiology given that they came without much warning, occurred while sitting, and he quickly felt back to baseline after regaining consciousness. Has bifascicular block on ECG. Concern for transient heart block. Agree with reduction in beta-mook. Continue telemetry. He was advised to not drive. Considered pacemaker placement and discussed with patient. Will notify electrophysiology. If he leaves this hospital without identifiable cause and no pacemaker, would recommend that Mendez becerra be notified of his syncope at rest. Carotid duplex ordered to evaluate for significant carotid disease. After discussion, he was agreeable for continued monitoring and open for further discussion about possible pacemaker pending hospital course. 2. Bifascicular block: As above. 3. Permanent atrial fibrillation: Has a history of AFib with RVR. Heart rate normal now on beta-mook. Beta-mook reduced however due to syncopal events. Continue anticoagulation for stroke risk reduction. Possibility of tachy-varinder syndrome. 4. Hypertension: Blood pressure currently elevated. Would not resume his prior dose of metoprolol. Recommend LEANDRA-inhibitor given diabetes diagnosis. 5. Disposition: I will be away from the hospital for the next several days. Dr Krissy Sim will be covering tomorrow. Please call on-call chamber walker for questions or concerns. Patient care discussed with Dr. Carrion of the primary hospitalist service. Highly complex medical issues for which permanent pacemaker placement was considered. Thank you for allowing me to participate in the care of your patient. Please call for any other questions or concerns. Sincerely, Jules Jernigan M.D. History of Present Illness Reason for Consultation: Syncope Requesting Physician: Cyrus Attending Physician: Phi Carrion MD History of Present Illness Mr. Faroqo is a pleasant 75-year-old gentleman with history significant for permanent atrial fibrillation, hypertension, dyslipidemia, and type 2 diabetes. There is a reported history of tachycardia induced cardiomyopathy as well. His primary chamber walker is Dr. Martin. He has been on metoprolol 100 mg twice daily chronically for AFib. He was first diagnosed with atrial fibrillation in February of 2004 when he was found to have paroxysmal AFib with rapid ventricular response, documenting heart rates as high as 150 beats per minute. On 09/12/2020 at approximately 10:00 a.m. while sitting at the kitchen table reading a newspaper in eating, he felt lightheaded and his described to him that he was slowly leaning forward. He recalls the entire event stating that he did not lose consciousness but was unable to see. The episode lasted for 15-20 seconds and then he felt back to usual self, regaining his vision and asymptomatic. He then went up stairs a little while later and was sitting in a chair typing on his computer. The same symptoms once again occurred but this time they were much worse and he lost consciousness. He woke up and found himself laying on the ground with blood on the ground after injuring his right shoulder and suffering a laceration to the left side of his face. When he woke up, other than pain from the fall itself, he felt back to baseline. There was no lingering lightheadedness. He recalls feeling perhaps a bit nauseated after the lightheadedness already began but after the event, no nausea. There was no vomiting. He had no chest pain, palpitations, shortness of breath, or other symptom prior to or following the events. While here, he has not had any further syncope. He recalls sitting in a chair reading his iPhone and felt a "twinge" of nausea and perhaps "a touch of dizziness" but no further symptoms. He put his iPhone down and has not had any further symptoms. He exercises regularly including 90 minutes of weights, stretching, aerobics, and dancing 3 days per week, as well as walking 3 days per week 1.5 miles. He has not had any such exertional symptoms. He has not had any vomiting, diarrhea, melena, hematochezia, hematuria, edema, fevers. He has been eating and drinking his usual amounts. No alcohol consumption or drug use the day of his syncopal episode. Review of systems: As above. Review of systems otherwise negative/unremarkable. Family history: Father had AK possibly in his late 40s. Parents from lung cancer near the age of 80. Social history: He smokes 2 cigarettes per day. He consumes 14 oz of alcohol per week, preferably scotch. Rare marijuana use. He is and lives at home with his . Two children. 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 unaccompanied in his hospital room. Allergies Allergy/AdvReac Type Severity Reaction Status Date / Time No Known Allergies Allergy Unknown Verified 09/08/20 10:59 Home Medications Medication Instructions Recorded Confirmed Type acetaminophen 325 mg capsule 325 mg PO Q4H PRN #90 cap 02/05/19 09/12/20 Rx sildenafil 50 mg tablet 50 mg PO DAILY PRN #10 tab 12/13/19 09/12/20 Rx apixaban 5 mg tablet 5 mg PO BID #180 tab 12/14/19 09/12/20 Rx metoprolol tartrate 100 mg tablet 100 mg PO BID #180 tab 12/14/19 09/12/20 Rx simvastatin 40 mg tablet 40 mg PO QPM #90 tab 12/14/19 09/12/20 Rx meclizine 25 mg tablet 25 mg PO TID PRN #30 tab 03/11/20 09/12/20 Rx tramadol 50 mg tablet 50 mg PO TID PRN #90 tab 08/12/20 09/12/20 Rx Patient History Medical History Cardiomyopathy Diverticulosis Internal hemorrhoids Low back pain Osteoarthritis of hip Surgical History History of hip replacement, total History of skin surgery Family History Sister Colorectal cancer Mother Lung cancer Father Lung cancer Other Myocardial infarction Denies family history of Ovarian cancer Prostate cancer Breast cancer Social History Smoking Status: Current every day smoker Tobacco Type: Cigarettes Age Started Using Tobacco: 14; Cigarettes Per Day: 1-2; Second Hand Exposure: Yes (CHILDHOOD); Hx Alcohol Use: Yes Alcohol type: beer and hard liquor Alcohol Intake Frequency: 2-3 x/Week Hx Substance Use: No Preferred Language: Pashto Communication Ability: Effective Communication Ability Comment: WNL Visual Impairment: No Limitations Hearing Ability: Normal [employer] Well [employer] Required: No marital status: Current Living Situation: Spouse current occupational status: employed Other Information That Helps Us Care for You: No Feels Safe at Home: Yes Safety Concerns: Feels Safe At This Time Dental Care, Regularly: Yes Physical Activity Frequency: 3-4 Times per Week Physical Activity Frequency Comment: golfing, weights, cardio Seatbelt Use: always Sunscreen Use: Yes Assistive Devices: None Physical Exam Physical Exam: Gen.: No acute distress. Alert and oriented. HEENT: Anicteric sclera. Left facial ecchymosis and sutured laceration noted. Neck: No JVD. No bruits. Normal carotid upstrokes bilaterally. Cardiac: PMI was nondisplaced. No ventricular heave. Irregularly irregular. Normal rate. Normal S1-S2. No murmurs, rubs, or gallops. Pulmonary: Clear to auscultation bilaterally without wheezes, rales, or rhonchi. Abdomen: Soft, nontender, nondistended, with normoactive bowel sounds. No bruits noted. Extremities: 2+ radial pulses bilaterally. 2+ posterior tibialis pulses bilaterally. No edema or cyanosis. Psychiatric: Affect appears appropriate. Results & Data ([facility]) Vital Signs (Past 12 Hours) Vital Signs Temp Pulse Pulse Resp BP BP Pulse Ox 09/13/20 12:00 36.5 C 74 18 164/99 H 94 09/13/20 07:24 36.5 C 73 18 174/106 H 174/110 H 95 09/13/20 07:00 66 09/13/20 03:52 71 130/90 Laboratory Results Laboratory Results - last 24 hr 09/12/20 09/12/20 09/12/20 12:20 12:26 12:26 WBC 6.52 RBC 4.76 Hgb 16.2 Hct 43.9 MCV 92.2 MCH 34.0 MCHC 36.9 H RDW Std Deviation 41.9 RDW Coeff of Wali 12.4 Plt Count 219 MPV 10.0 Immature Gran % (Auto) 0.3 Neut % (Auto) 61.3 Lymph % (Auto) 24.4 [place] % (Auto) 10.6 Eos % (Auto) 2.6 Baso % (Auto) 0.8 Neut # (Auto) 4.00 Lymph # (Auto) 1.59 [place] # (Auto) 0.69 H Eos # (Auto) 0.17 Baso # (Auto) 0.05 Immature Gran # (Auto) 0.02 Sodium 138 Potassium 4.5 Chloride 105 Carbon Dioxide 28 Anion Gap 5.0 BUN 13 Creatinine 0.94 Est Cr Clr Drug Dosing 83.8 Est GFR ( Amer) 92.9 Est GFR (Non-Af Amer) 80.1 BUN/Creatinine Ratio 13.8 Glucose 249 H POC Glucose 258 H Estimat Average Glucose Hemoglobin A1c Calcium 9.0 Magnesium 2.0 Total Bilirubin 1.5 H AST 20 ALT 30 Alkaline Phosphatase 52 Troponin I < 0.015 Total Protein 7.0 Albumin 3.6 Globulin 3.4 Albumin/Globulin Ratio 1.1 Triglycerides Cholesterol LDL Cholesterol, Calc VLDL Cholesterol, Calc HDL Cholesterol Cholesterol/HDL Ratio TSH 1.800 Urine Color Urine Appearance Urine pH Ur Specific [place] Urine Protein Urine Glucose (UA) Urine Ketones Urine Blood Urine Nitrite Urine Bilirubin Urine Urobilinogen Ur Leukocyte Esterase COVID-19 Eval Order SARS-CoV-2 (PCR) Influenza Type A (PCR) Influenza Type B (PCR) RSV (RT-PCR) 09/12/20 09/12/20 09/12/20 13:25 15:47 15:47 WBC RBC Hgb Hct MCV MCH MCHC RDW Std Deviation RDW Coeff of Wali Plt Count MPV Immature Gran % (Auto) Neut % (Auto) Lymph % (Auto) [place] % (Auto) Eos % (Auto) Baso % (Auto) Neut # (Auto) Lymph # (Auto) [place] # (Auto) Eos # (Auto) Baso # (Auto) Immature Gran # (Auto) Sodium Potassium Chloride Carbon Dioxide Anion Gap BUN Creatinine Est Cr Clr Drug Dosing Est GFR ( Amer) Est GFR (Non-Af Amer) BUN/Creatinine Ratio Glucose POC Glucose Estimat Average Glucose Hemoglobin A1c Calcium Magnesium Total Bilirubin AST ALT Alkaline Phosphatase Troponin I Total Protein Albumin Globulin Albumin/Globulin Ratio Triglycerides Cholesterol LDL Cholesterol, Calc VLDL Cholesterol, Calc HDL Cholesterol Cholesterol/HDL Ratio TSH Urine Color Yellow Urine Appearance Clear Urine pH 6.5 Ur Specific [place] 1.012 Urine Protein Negative Urine Glucose (UA) 1+ H Urine Ketones Negative Urine Blood Negative Urine Nitrite Negative Urine Bilirubin Negative Urine Urobilinogen Negative Ur Leukocyte Esterase Negative COVID-19 Eval Order CovFluRsv at [facility] SARS-CoV-2 (PCR) NEGATIVE Influenza Type A (PCR) Negative Influenza Type B (PCR) Negative RSV (RT-PCR) Negative 09/12/20 09/13/20 09/13/20 20:50 05:34 05:34 WBC 7.47 RBC 4.50 L Hgb 15.2 Hct 42.0 MCV 93.3 MCH 33.8 MCHC 36.2 H RDW Std Deviation 42.6 RDW Coeff of Wali 12.5 Plt Count 215 MPV 9.8 Immature Gran % (Auto) 0.1 Neut % (Auto) 55.0 Lymph % (Auto) 30.5 [place] % (Auto) 11.8 Eos % (Auto) 2.3 Baso % (Auto) 0.3 Neut # (Auto) 4.11 Lymph # (Auto) 2.28 [place] # (Auto) 0.88 H Eos # (Auto) 0.17 Baso # (Auto) 0.02 Immature Gran # (Auto) 0.01 Sodium 139 Potassium 4.2 Chloride 105 Carbon Dioxide 30 Anion Gap 4.0 BUN 13 Creatinine 0.81 Est Cr Clr Drug Dosing 96.7 Est GFR ( Amer) 102.2 Est GFR (Non-Af Amer) 88.2 BUN/Creatinine Ratio 16.7 Glucose 144 H POC Glucose 235 H Estimat Average Glucose Hemoglobin A1c Calcium 9.0 Magnesium 1.9 Total Bilirubin AST ALT Alkaline Phosphatase Troponin I Total Protein Albumin Globulin Albumin/Globulin Ratio Triglycerides 261 H Cholesterol 161 LDL Cholesterol, Calc 73 VLDL Cholesterol, Calc 52 HDL Cholesterol 36 Cholesterol/HDL Ratio 5 TSH Urine Color Urine Appearance Urine pH Ur Specific [place] Urine Protein Urine Glucose (UA) Urine Ketones Urine Blood Urine Nitrite Urine Bilirubin Urine Urobilinogen Ur Leukocyte Esterase COVID-19 Eval Order SARS-CoV-2 (PCR) Influenza Type A (PCR) Influenza Type B (PCR) RSV (RT-PCR) 09/13/20 09/13/20 09/13/20 05:34 07:22 11:54 WBC RBC Hgb Hct MCV MCH MCHC RDW Std Deviation RDW Coeff of Wali Plt Count MPV Immature Gran % (Auto) Neut % (Auto) Lymph % (Auto) [place] % (Auto) Eos % (Auto) Baso % (Auto) Neut # (Auto) Lymph # (Auto) [place] # (Auto) Eos # (Auto) Baso # (Auto) Immature Gran # (Auto) Sodium Potassium Chloride Carbon Dioxide Anion Gap BUN Creatinine Est Cr Clr Drug Dosing Est GFR ( Amer) Est GFR (Non-Af Amer) BUN/Creatinine Ratio Glucose POC Glucose 150 H 206 H Estimat Average Glucose 183 Hemoglobin A1c 8.0 H Calcium Magnesium Total Bilirubin AST ALT Alkaline Phosphatase Troponin I Total Protein Albumin Globulin Albumin/Globulin Ratio Triglycerides Cholesterol LDL Cholesterol, Calc VLDL Cholesterol, Calc HDL Cholesterol Cholesterol/HDL Ratio TSH Urine Color Urine Appearance Urine pH Ur Specific [place] Urine Protein Urine Glucose (UA) Urine Ketones Urine Blood Urine Nitrite Urine Bilirubin Urine Urobilinogen Ur Leukocyte Esterase COVID-19 Eval Order SARS-CoV-2 (PCR) Influenza Type A (PCR) Influenza Type B (PCR) RSV (RT-PCR) Diagnostic Findings Echo from 09/13/2020 personally reviewed: Preliminary review demonstrated normal LV systolic function. Formal review to follow. Cardiology consultation from 03/19/2004 reviewed. Chart reviewed. Telemetry personally reviewed: AFib. No significant pauses. Head CT 09/12/2020: No acute intracranial findings per Radiology. Chest x-ray 09/12/2020: No acute process per Radiology. ECGs personally reviewed: ECG 09/12/2020: AFib 61 beats per minute. RBBB with LAFB. Bifascicular block. ECG 09/13/2020: AFib 78 beats per minute. RBBB. LAFB. Bifascicular block. Medications Administered Current Inpatient Medications Acetaminophen (Acetaminophen 325 Mg Tab) 650 mg PO Q4H PRN PRN Reason: Pain or Fever Stop: 10/12/20 20:18 Last Admin: 09/13/20 08:43 Dose: 650 mg Documented by: Apixaban (Apixaban 5 Mg Tablet) 5 mg PO BID MAGUI Stop: 10/12/20 20:59 Last Admin: 09/13/20 08:44 Dose: 5 mg Documented by: Bacitracin (Bacitracin Oint 0.9 Gm Pkt) 1 appln EXT BID PRN PRN Reason: face abrasion Stop: 10/12/20 20:18 Dextrose (Dextrose 50% 50 Ml Syringe) 25 - 50 ml IV UD PRN; Protocol PRN Reason: Hypoglycemia Protocol Stop: 10/12/20 20:18 Glucagon (Glucagon For Inj 1 Mg Vial) 1 mg SQ UD PRN; Protocol PRN Reason: Hypoglycemia Protocol Stop: 10/12/20 20:18 Glucose (Glucose 10 Tabs/Tube) 4 - 8 tabs PO UD PRN; Protocol PRN Reason: Hypoglycemia Protocol Stop: 10/12/20 20:18 Glucose (Glucose 40% Gel 15 Gm Tube) 15 - 30 gm PO UD PRN; Protocol PRN Reason: Hypoglycemia Protocol Stop: 10/12/20 20:18 Insulin Aspart (Insulin Aspart 100 Units/Ml 3 Ml Pen) 0 units SC ACHS MAGUI Stop: 10/12/20 20:18 Last Admin: 09/13/20 08:46 Dose: 2 units Documented by: Lidocaine (Lidocaine 5% 1 Patch) 1 patch TD QAM MAGUI Stop: 10/13/20 08:59 Last Admin: 09/13/20 08:43 Dose: 1 patch Documented by: Metoprolol Tartrate (Metoprolol Tartrate 25 Mg Tab) 25 mg PO BID MAGUI Stop: 10/13/20 08:59 Last Admin: 09/13/20 09:30 Dose: 25 mg Documented by: Miscellaneous (Carbohydrates For Hypoglycemia ) 15 - 30 gm PO UD PRN PRN Reason: Hypoglycemia Protocol Stop: 10/12/20 20:18 Miscellaneous (Remove Lidoderm Patch) 1 ea N/A DAILY@2100 [facility] Stop: 10/13/20 20:59 Ondansetron HCl (Ondansetron Inj 2 Mg/Ml 2 Ml Vial) 4 mg IV Q6H PRN PRN Reason: Nausea Stop: 10/12/20 20:18 Simvastatin (Simvastatin 40 Mg Tab) 40 mg PO QPM [facility] Stop: 10/12/20 20:59 Last Admin: 09/12/20 21:53 Dose: 40 mg Documented by: Tramadol HCl (Tramadol Hcl 50 Mg Tablet) 50 mg PO TID PRN PRN Reason: pain Stop: 10/12/20 20:18 Last Admin: 09/13/20 03:50 Dose: 50 mg Documented by: PG Care Time/CCT Total # of Minutes Spent Total Time Spent with Patient: Total time spent is greater than 50% in coordination of care (as documented) at patient's floor/unit and/or counseling patient: Coding Level of Care Code 84422 Initial Inpt Care Lvl 3 Diagnoses Syncope and collapse R55 Bifascicular block I45.2 Atrial fibrillation, permanent I48.21 Hypertension I10
--- NOTE | 2020-09-13 17:36 | Ultrasound Report ---
ULTRASOUND OF THE CAROTID ARTERIES CLINICAL HISTORY: Syncope. COMPARISON STUDY: No priors. TECHNIQUE: Real-time, grayscale, and color Doppler sonography of the carotid arteries is performed. I mages are reviewed in the transverse and longitudinal planes. FINDINGS: Blood pressure in the right arm measures 164/107 and blood pressure in the left arm measures 159/109. The carotid arteries are patent bilaterally and demonstrate antegrade flow. There is minimal atherosc lerotic plaque identified. Normal doppler arterial waveforms are seen throughout. Velocity measuremen ts are listed below. Common carotid peak systolic velocity (cm/sec): RIGHT: 81 LEFT: 84 ICA proximal peak systolic velocity (cm/sec): RIGHT: 39 LEFT: 42 ICA mid peak systolic velocity (cm/sec): RIGHT: 46 LEFT: 38 ICA distal peak systolic velocity (cm/sec): RIGHT: 84 LEFT: 45 ICA/CC peak systolic ratio: RIGHT: 1.0 LEFT: 0.5 Antegrade flow was shown in the vertebral arteries. The external carotid arteries are patent. IMPRESSION: 1. There is no sonographic evidence of hemodynamically significant stenosis in the right or left lyles tid arterial system. 2. Antegrade flow is shown in the vertebral arteries. ACT 112: Negative or not required by law. Electronically signed by: Jared Vidales M.D. 09/13/2020 5:34 PM
[2020-09-13] MEDS: SIMVASTATIN 40 MG TAB PO SCH (21:57)
--- NOTE | 2020-09-13 22:09 | XCELERA ---
[id number]
[2020-09-14] MEDS: traMADol HCL 50 MG TABLET PO PRN ×3 (06:15→22:36)
[2020-09-14 06:28] LABS: Basophils # (auto) 0.03 K/uL (0-0.2); Basophils % (auto) 0.4 %; Eosinophils # (auto) 0.22 K/uL (0-0.5); Eosinophils % (auto) 2.9 %; Hematocrit (blood only) 43.6 % (42-52); Hemoglobin 15.5 g/dL (14.0-18.0); Immature Granulocytes # (auto) 0.02 K/uL (0.00-0.02); Immature Granulocytes % (auto) 0.3 %; Lymphocytes # (auto) 2.84 K/uL (1.2-3.4); Mean Corpuscular Hemoglobin 33.5 pg (25-34); Mean Corpuscular Hgb Conc 35.6 g/dL (32-36); Mean Corpuscular Volume 94.2 fL (80-100); Monocytes # (auto) 0.81 K/uL (0.11-0.59); Monocytes % (auto) 10.8 %; Neutrophils # (auto) 3.55 K/uL (1.4-6.5); Neutrophils % (auto) 47.6 %; Platelet Count 188 K/uL (130-400); RDW Coefficient of Variation 12.5 % (11.5-14.5); RDW Standard Deviation 42.8 fL (36.4-46.3); Red Blood Count 4.63 M/uL (4.7-6.1); White Blood Count 7.47 K/uL (4.8-10.8)
[2020-09-14 06:56] LABS: BUN Creatinine Ratio 17.8 (10-20); Calcium 9.6 mg/dl (8.5-10.1); Creatinine Clr Calc Pharmacy 102.5 ml/min; Est GFR (African American) 104.9; Est GFR (Non-African American) 90.5; Magnesium 1.9 mg/dl (1.8-2.4)
--- NOTE | 2020-09-14 07:28 | Electrocardiogram Report ---
Test Reason : Blood Pressure : / mmHG Vent. Rate : 078 BPM Atrial Rate : 104 BPM P-R Int : 000 ms QRS Dur : 150 ms QT Int : 452 ms P-R-T Axes : 000 -79 080 degrees QTc Int : 515 ms Atrial fibrillation Right bundle branch block Left anterior fascicular block Bifascicular block Possible Anterolateral infarct Abnormal ECG When compared with ECG of 12-SEP-2020 12:16, Nonspecific T wave abnormality no longer evident in Inferior leads Confirmed by Eddi Jernigan ([id number]) on 09/14/2020 7:28:38 AM Referred By: REFERRED SELF Confirmed By:Eddi Jernigan
[2020-09-14] MEDS: lisinopril 5 MG TAB PO SCH (08:27)
[2020-09-14] MEDS: APIXABAN 5 MG TABLET PO SCH (08:27)
[2020-09-14] MEDS: LIDOCAINE 5% 1 PATCH TD SCH (08:28)
[2020-09-14] MEDS: INSULIN ASPART 100 UNITS/ML 3 ML PEN SC SCH ×4 (08:29→20:58)
[2020-09-14] MEDS: METOPROLOL TARTRATE 25 MG TAB PO SCH (08:29)
--- NOTE | 2020-09-14 09:52 | Electrocardiogram Report ---
Test Reason : Blood Pressure : / mmHG Vent. Rate : 075 BPM Atrial Rate : 416 BPM P-R Int : 000 ms QRS Dur : 150 ms QT Int : 464 ms P-R-T Axes : 000 257 104 degrees QTc Int : 518 ms Limb lead reversal Atrial fibrillation Right bundle branch block Possible anterolateral KS age indeterminate Abnormal ECG When compared with ECG of 13-SEP-2020 03:39, (unconfirmed) No significant change was found Confirmed by Manjeet Sim ([id number]) on 09/14/2020 9:52:34 AM Referred By: REFERRED SELF Confirmed By:Manjeet Sim
[2020-09-14] MEDS: BACITRACIN OINT 0.9 GM PKT EXT PRN (13:01)
--- NOTE | 2020-09-14 15:45 | Hospitalist Progress Note ---
Date of Service September 14, 2020 Assessment & Plan (1) Syncope and collapse: patient with syncope and collapse resulting in face abrasion and laceration->traumatic syncope -Concern for cardiogenic component to his syncope, cardiology is considering pacemaker, awaiting EP evaluation - Admit to telemetry given hypertension restarting his Lopressor much lower dose 25 mg instead of 100 -blood pressure in poor control added lisinopril 09/14/20 - ECHO currently pending - Cardiology consulted, appreciate their recommendations considering pacemaker insertion Continue neurological surveillance given the patient is on anticoagulation (2) Type 2 diabetes mellitus: not treated, patient has been having on going discussions with his PCP - HGBa1c 8 will need diabetic education - BG>250 on labs in the EMD- Patient had 2 yogurts this morning and V8 - Dextrose sticks ACH/HS - Loose sliding scale insulin coverage- pt not interested in going home on insulin wants to try oral meds first - DMII carb consistent diet (3) Atrial fibrillation: As above, remains in atrial fibrilation- controlled rate. No untoward effects with reduction of his beta-mook -Resuming at 25 mg twice a day instead of 100 -Continue telemetry monitoring (4) Hyperlipidemia: Continue zocor 40 mg (5) Low back pain: Chronic occasional treated with tramadol with good results (6) Abrasion of face: Bacitracin BID - ICE to face contiusion PRN 20 min on and 20 min off Sutures removed in 5 days (7) Laceration of face: Sutured in the EMD - Bacitracin - Tetanus is up to date - 2018 (Td) (8) Muscle pain: Right trapezius contusion - ICE 20 min on and 20 min off - Tylenol - Tramadol - Lidocaine patch Admission and Anticipated Discharge Date Admission Date: September 12, 2020 Subjective Patient had another "spell" while he was reading 09/13. He has significant trauma to his left face where he fell and smashed his face. His right sternocleidomastoid muscle is tender likely from the countercoup effect of his falling and hitting his face. He spoke to cardiology there is concern with a bifascicular block and traumatic syncope he should be considered for a pacemaker. Review of Systems Review of Systems: Mild distress and fatigue no headache, blurry or double vision Patient has tenderness to his left cheek there are sutures in place and a large abrasion contusion on his left cheek and forehead no speech or swallowing issues no chest pain, pressure or palpitations no shortness of breath, cough or wheezes no abdominal pain, nausea or vomiting, diarrhea or constipation no dysuria, hematuria or frequency no focal joint pain or swelling no back pain, CVA tenderness or radicular pain no focal signs of weakness or numbness or altered sensation no complaints of anxiety or depression.. Physical Exam Physical Exam: The patient appeared well nourished and normally developed. Vital signs as documented. Head exam is he has abrasion contusion and sutured laceration of his left cheek Neck is without JVD, thyromegaly, or carotid bruits right sternocleidomastoid muscles tender to examine and palpation. Lungs are clear to auscultation, no focal loss of breath sounds Cardiac exam, Rhythm is regular.. No murmurs, rubs or gallops. Abdominal exam reveals normal bowel sounds, soft non tender, no masses Extremities are nonedematous and both pedal pulses are present Neurologic exam is alert and oriented, no focal loss of strength or sensation Skin is without other areas of bruises or rashes other than his left face Psychologically is without concerns for anxiety or depression Results & Data Results & Data ([facility]) Vital Signs (Past 12 Hours) Vital Signs Temp Pulse Pulse Pulse Resp BP BP 09/14/20 11:44 97.7 F 56 L 18 115/74 09/14/20 08:00 93 H 09/14/20 07:30 97.5 F L 75 20 180/83 H 09/14/20 04:00 97.3 F L 68 18 163/116 H Pulse Ox 09/14/20 11:44 90 09/14/20 08:00 09/14/20 07:30 95 09/14/20 04:00 95 PG Care Time/CCT Total # of Minutes Spent Total Time Spent with Patient: Total time spent is greater than 50% in coordination of care (as documented) at patient's floor/unit and/or counseling patient: Coding Level of Care Code 54337 Subseq Hosp Care Lvl 3 Diagnoses Syncope and collapse R55 Type 2 diabetes mellitus E11.9 Diabetes mellitus nursing clerk insulin use: without nursing clerk use Diabetes mellitus complication status: without complication Atrial fibrillation I48.19 Atrial fibrillation type: persistent (not longstanding) Hyperlipidemia E78.5 Hyperlipidemia type: unspecified Low back pain M54.5; G89.29 Chronicity: chronic Back pain laterality: unspecified Sciatica presence: without sciatica Abrasion of face S00.81XA Encounter type: initial encounter Laceration of face S01.81XA Encounter type: initial encounter Muscle pain M79.10 (1) Type 2 diabetes mellitus Diabetes mellitus nursing clerk insulin use: without group home use Diabetes mellitus complication status: without complication Qualified Code(s): E11.9 - Type 2 diabetes mellitus without complications (2) Atrial fibrillation Atrial fibrillation type: persistent (not longstanding) Qualified Code(s): I48.19 - Other persistent atrial fibrillation (3) Hyperlipidemia Hyperlipidemia type: unspecified Qualified Code(s): E78.5 - Hyperlipidemia, unspecified (4) Low back pain Chronicity: chronic Back pain laterality: unspecified Sciatica presence: without sciatica Qualified Code(s): M54.5 - Low back pain; G89.29 - Other chronic pain (5) Abrasion of face Encounter type: initial encounter Qualified Code(s): S00.81XA - Abrasion of other part of head, initial encounter (6) Laceration of face Encounter type: initial encounter Qualified Code(s): S01.81XA - Laceration w ithout foreign body of other part of head, initial encounter
--- NOTE | 2020-09-14 20:05 | Cardiology Progress Note ---
Date of Service September 14, 2020 Assessment & Plan (1) Syncope: 2. Permanent atrial fibrillation 3. Bifascicular block 4. Hypertension Agree with Dr. Jernigan that description of syncopal event concerning for arrhythmia. No significant pauses or symptomatic bradycardia on telemetry. Discussed with patient options of continued ambulatory monitoring or potentially proceeding with pacemaker. -- Will discuss further with EP tomorrow We will stop current metoprolol. Blood pressure better controlled today, continue current lisinopril. Continue anticoagulation with Eliquis. Admission and Anticipated Discharge Date Admission Date: September 14, 2020 Subjective Patient feeling well. No recurrent symptoms reminiscent of recent syncopal spells. No chest pain. Telemetry reviewedpermanent A. fib, primarily in the 50s occasionally down to high 40s Review of Systems Review of Systems: All systems reviewed & are unremarkable except as noted in HPI & below Physical Exam Physical Exam: General: Comfortable, no acute distress HEENT: Sclerae anicteric, mucous membranes moist Lungs: Clear to auscultation bilaterally Cardiac: Regular rate and rhythm, no murmurs Abdomen: Soft, nontender Extremities: Warm, well perfused, no edema. 2+ radial pulses Skin: No rashes or lesions. Neuro: Nonfocal Psych: Alert orient x3, normal affect and mood Results & Data ([facility]) Vital Signs (Past 12 Hours) Vital Signs Temp Pulse Pulse Resp BP Pulse Ox 09/14/20 19:11 97.9 F 70 18 124/79 95 09/14/20 16:00 68 09/14/20 15:54 98.1 F 62 18 112/75 97 09/14/20 11:44 97.7 F 56 L 18 115/74 90 09/14/20 08:00 93 H PG Care Time/CCT Total # of Minutes Spent Total Time Spent with Patient: Total time spent is greater than 50% in coordination of care (as documented) at patient's floor/unit and/or counseling patient: Coding Level of Care Code 11625 Subseq Hosp Care Lvl 3 Diagnoses Syncope R55 Syncope type: unspecified (1) Syncope Syncope type: unspecified Qualified Code(s): R55 - Syncope and collapse
[2020-09-14] MEDS ORDERED: NURSING DECISION MEDICATION ONE (20:27)
[2020-09-14] MEDS ORDERED: ARTIFICIAL TEARS OP PRN (20:29)
[2020-09-14] MEDS: SIMVASTATIN 40 MG TAB PO SCH (21:00)
[2020-09-14] MEDS: ZOLPIDEM TARTRATE 5 MG TAB PO PRN (22:36)
[2020-09-15 07:07] LABS: Basophils # (auto) 0.03 K/uL (0-0.2); Basophils % (auto) 0.5 %; Eosinophils # (auto) 0.16 K/uL (0-0.5); Eosinophils % (auto) 2.4 %; Hematocrit (blood only) 44.7 % (42-52); Hemoglobin 15.7 g/dL (14.0-18.0); Immature Granulocytes # (auto) 0.02 K/uL (0.00-0.02); Immature Granulocytes % (auto) 0.3 %; Lymphocytes # (auto) 2.48 K/uL (1.2-3.4); Lymphocytes % (auto) 37.7 %; Mean Corpuscular Hemoglobin 33.1 pg (25-34); Mean Corpuscular Hgb Conc 35.1 g/dL (32-36); Mean Corpuscular Volume 94.3 fL (80-100); Monocytes # (auto) 0.76 K/uL (0.11-0.59); Monocytes % (auto) 11.6 %; Neutrophils # (auto) 3.13 K/uL (1.4-6.5); Neutrophils % (auto) 47.5 %; Platelet Count 180 K/uL (130-400); RDW Coefficient of Variation 12.3 % (11.5-14.5); RDW Standard Deviation 42.2 fL (36.4-46.3); Red Blood Count 4.74 M/uL (4.7-6.1); White Blood Count 6.58 K/uL (4.8-10.8)
[2020-09-15] MEDS: INSULIN ASPART 100 UNITS/ML 3 ML PEN SC SCH ×4 (07:29→21:23)
[2020-09-15 07:41] LABS: BUN Creatinine Ratio 18.5 (10-20); Est GFR (African American) 101.2; Est GFR (Non-African American) 87.3; Magnesium 2.1 mg/dl (1.8-2.4); Potassium 4.7 mmol/L (3.5-5.1)
[2020-09-15] MEDS: LIDOCAINE 5% 1 PATCH TD SCH (09:41)
[2020-09-15] MEDS: ACETAMINOPHEN 325 MG TAB PO PRN ×2 (09:42→22:01)
[2020-09-15] MEDS: lisinopril 5 MG TAB PO SCH (09:42)
[2020-09-15] MEDS ORDERED: LACTATED RINGER'S 1,000 ML IV SCH (10:00)
--- NOTE | 2020-09-15 10:00 | Cardiology Consultation ---
Date of Consultation September 15, 2020 Assessment & Plan (1) Syncope: He presents with a single episode of syncope preceded perhaps an hour earlier with an episode of presyncope. The description is suggestive of hypotension, not a neurologic event, which could certainly have been due to an arrhythmia. In his case since he was somewhat bradycardic on presentation and on high-dose beta-blockade bradycardia is the most likely cause, although his syncopal event could certainly have been exacerbated by standing up and there may be an orthostatic component. His presyncopal event resolved while he was sitting at the kitchen table and he did not lose consciousness although it may have been close. He has had no further events since presentation and he had no events prior to his presentation. Various possibilities exist including transient heart block (which we have not observed despite his baseline bifascicular block) versus significant bradycardia either from atrial fibrillation on high-dose beta-blockade or theoretically from conversion of atrial fibrillation to sinus rhythm with sinus node dysfunction. Other possibilities include hypotension or in many cases unknown causes. As pacemaker is a consideration, that would treat bradycardia but not other issues. Alternatively with holding his beta-mook has resulted in an increase in heart rate and this may be a reasonable alternative although I would also use a loop recorder in this case. I have discussed these with him in detail today including with his via telephone. We have yet not made that decision but he agrees to either a pacemaker or loop recorder which would be performed on September 16, 2020. (2) Atrial fibrillation, permanent: He has what we believed to be permanent atrial fibrillation although he has not had long-term monitoring so it is possible it is paroxysmal in which case his events could have been posttermination sinus node dysfunction. A loop recorder (as well as a pacemaker potentially although we might use a single- chamber unit) would identify this. On telemetry he has a relatively well-controlled heart rate, that does not seem to be particularly high although on occasional readings he does have a high heart rate. His history of tachycardia induced cardiomyopathy is somewhat worrisome and will need to watch for heart rate control. If he has excessive heart rates we will need AV kyler blocking medications but so far we have not seen that and I would avoid them for now. I do not know that he needs a beta- mook if his heart rate is controlled. (3) Bifascicular block: He has longstanding bifascicular block, as such it is worrisome that he may have had complete heart block as a cause of his event. We have not however seen that during the hospitalization, when his heart rate is slow it is irregular suggesting conducted atrial fibrillation not an escape rhythm. This can be transient and sudden still remains a possibility. A pacemaker would would treat this but we do not have evidence that he has heart block. (4) Hypertension: He has hypertension and will need treatment for it, at the moment I would avoid drugs which affect AV kyler conduction. History of Present Illness Reason for Consultation: Syncope Attending Physician: Christian Yip, DO History of Present Illness This is a 75-year-old male with a history of what is considered to be permanent atrial fibrillation for which he has been on Eliquis and metoprolol tartrate 100 mg twice a day. He typically has been asymptomatic in his atrial fibrillation and remains very active with golfing, etc. without difficulty. He has never had presyncope or syncope Intel this presentation on September 12, 2020. He described the episode to me (which is also described elsewhere) which consisted of 2 separate events, the first was sitting at his kitchen table when he began to lose consciousness but did not completely lose consciousness, apparently began to fall forward but woke up before he hit the table. He had never experienced that before. That past and he went upstairs and was in his recliner until about an hour later when he began to have a similar experience. He does not remember losing consciousness, he does not remember standing up and does not remember falling but he found himself on the floor having struck his head and having a laceration to his forehead. He came into the emergency room, he was noted to be bradycardic and hypertensive. He was admitted, his metoprolol was held. An echocardiogram done on September 13, 2020 shows normal left ventricular systolic function with moderate concentric left ventricular hypertrophy and ejection fraction of 55 to 60%. He has had no further symptomatic events or significant bradycardia during the hospitalization. He does have a background history of hypertension, dyslipidemia and diabetes mellitus and there is a history of a tachycardia induced cardiomyopathy. He also has bifascicular block with left anterior fascicular block and right bundle branch block. Allergies Allergy/AdvReac Type Severity Reaction Status Date / Time No Known Allergies Allergy Unknown Verified 09/08/20 10:59 Home Medications Medication Instructions Recorded Confirmed Type acetaminophen 325 mg capsule 325 mg PO Q4H PRN #90 cap 02/05/19 09/12/20 Rx sildenafil 50 mg tablet 50 mg PO DAILY PRN #10 tab 12/13/19 09/12/20 Rx apixaban 5 mg tablet 5 mg PO BID #180 tab 12/14/19 09/12/20 Rx metoprolol tartrate 100 mg tablet 100 mg PO BID #180 tab 12/14/19 09/12/20 Rx simvastatin 40 mg tablet 40 mg PO QPM #90 tab 12/14/19 09/12/20 Rx meclizine 25 mg tablet 25 mg PO TID PRN #30 tab 03/11/20 09/12/20 Rx tramadol 50 mg tablet 50 mg PO TID PRN #90 tab 08/12/20 09/12/20 Rx Patient History Medical History Atrial fibrillation, permanent Bifascicular block Cardiomyopathy Diverticulosis Hyperlipidemia Hypertension Internal hemorrhoids Low back pain Osteoarthritis of hip Type 2 diabetes mellitus Surgical History History of hip replacement, total History of skin surgery Family History Sister Colorectal cancer Mother Lung cancer Father Lung cancer Other Myocardial infarction Denies family history of Ovarian cancer Prostate cancer Breast cancer Social History Smoking Status: Current every day smoker Tobacco Type: Cigarettes Age Started Using Tobacco: 14; Cigarettes Per Day: 1-2; Second Hand Exposure: Yes (CHILDHOOD); Hx Alcohol Use: Yes Alcohol type: beer and hard liquor Alcohol Intake Frequency: 2-3 x/Week Hx Substance Use: No Preferred Language: Iraqi Communication Ability: Effective Communication Ability Comment: WNL Visual Impairment: No Limitations Hearing Ability: Normal 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 HEENT: Unremarkable Neck: No jugular venous distention, carotid pulses are irregular but otherwise normal and equal bilaterally without bruits. Pulmonary: Clear to auscultation bilaterally. Cardiac: Irregular rhythm with no murmur, gallop or rub. Abdomen: Soft, nontender with normal bowel sounds. Extremities: No edema. Distal pulses intact. Neurologic: No focal findings. Gait is steady. Skin: No rash, ecchymoses or petechiae. Results & Data ([facility]) Vital Signs (Past 12 Hours) Vital Signs Temp Pulse Pulse Pulse Resp BP Pulse Ox 09/15/20 07:30 102 H 09/15/20 07:27 36.5 C 81 18 133/93 97 09/15/20 04:00 36.5 C 75 18 173/77 H 96 09/15/20 00:00 85 09/14/20 22:43 36.7 C 85 18 130/83 97 Laboratory Results CBC 09/15/20 Range/Units 06:03 WBC 6.58 (4.8-10.8) K/uL RBC 4.74 (4.7-6.1) M/uL Hgb 15.7 (14.0-18.0) g/dL Hct 44.7 (42-52) % Plt Count 180 (130-400) K/uL Neut # (Auto) 3.13 (1.4-6.5) K/uL Lymph # (Auto) 2.48 (1.2-3.4) K/uL Coal # (Auto) 0.76 H (0.11-0.59) K/uL Eos # (Auto) 0.16 (0-0.5) K/uL Baso # (Auto) 0.03 (0-0.2) K/uL Comprehensive Metabolic Panel 09/15/20 Range/Units 06:03 Sodium 140 (136-145) mmol/L Potassium 4.7 D (3.5-5.1) mmol/L Chloride 106 (98-107) mmol/L Carbon Dioxide 32 (21-32) mmol/L BUN 15 (7-18) mg/dl Creatinine 0.83 (0.6-1.4) mg/dl Glucose 153 H (70-99) mg/dl Calcium 9.0 (8.5-10.1) mg/dl Intake and Output 09/14/20 09/15/20 09/15/20 22:59 06:59 14:59 Intake Total 600 / 1270 Balance 600 / 1270 Intake: Oral 600 / 1270 Other: Other Intake Source NPO Weight 94 kg Weight Measurement Method Standing Scale Diagnostic Findings Telemetry: Review of telemetry for the last 72 hours shows a gradual increase in heart rate to a relatively normal heart rate today on average. No significant bradycardia although heart rate does fall into the 40s at times, however the rhythm is irregular suggesting conducted atrial fibrillation not heart block. PG Care Time/CCT Total # of Minutes Spent Total Time Spent with Patient: Total time spent is greater than 50% in coordination of care (as documented) at patient's floor/unit and/or counseling patient: Coding Level of Care Code 57040 Initial Inpt Care Lvl 3 Diagnoses Syncope R55 Syncope type: unspecified Atrial fibrillation, permanent I48.21 Bifascicular block I45.2 Hypertension I10 Time Spent (min) 75 Comment Extensive discussion with patient and his via telephone (1) Syncope Syncope type: unspecified Qualified Code(s): R55 - Syncope and collapse
--- NOTE | 2020-09-15 13:49 | Hospitalist Progress Note ---
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 After his syncopal event, he came into the emergency room where he was noted to be bradycardic (usual HR's in the 50's while on Metoprolol) and he was hypertensive. He was admitted and his Metoprolol was held. An Echocardiogram 09/13/20 shows normal left ventricular systolic function with moderate concentric left ventricular hypertrophy and ejection fraction of 55% to 60%. He has had no further symptomatic events or any significant bradycardia during this hospitalization. He remains in A-Fib and since stopping Metoprolol his HR have been 100 to 120 bpm depending on what he is doing. Telemetry has not demonstrated any evidence of AV block, cardiac pauses, ventricular arrhythmias, etc which would account for his syncopal event. With bifascicular block he has evidence of underlying conduction disease. 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 -- Plan is to proceed with either a permanent dual chamber pacemaker vs a cardiac loop recorder tomorrow afternoon with Dr. Fleming. -- Patient appears to favor a dual chamber pacemaker. -- Hold Eliquis in preparation of this procedure. (2) Atrial fibrillation, permanent: -- Patient was noted to be bradycardic on admission (usual HR's in the 50's while on Metoprolol) and he was hypertensive. -- His Metoprolol is being held. -- He has had no further symptomatic events or any significant bradycardia during this hospitalization. -- He remains in A-Fib and since stopping Metoprolol his HR have been 100 to 120 bpm, and therefore he will require a negative chronotropic agent to manage his rate in A-Fib. -- halfway anticoagulation with Eliquis, which is currently being held for his procedure tomorrow afternoon. (3) Bifascicular block: -- Longstanding, but this is evidence of underlying conduction disease. (4) Hypertension: -- Metoprolol tartrate is on hold due to bradycardia. -- Lisinopril 5 mg daily initiated. -- BP appears to be controlled. (5) Hyperlipidemia: -- Continue Simvastatin 40 mg daily in the evening. (6) Type 2 diabetes mellitus: -- Continue Diabetic diet. -- Sliding scale insulin while hospitalized. -- Usually manages DM through diet and exercise. Admission and Anticipated Discharge Date Admission Date: September 14, 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 He has never had presyncope or syncope until this presentation on September 12, 2020. He described the episode which consisted of 2 separate events. The first occurred while sitting at his kitchen table when he began to lose consciousness but did not completely lose consciousness, apparently began to fall forward but woke up before he hit the table. He had never experienced this before. That episode passed and he went upstairs and was in his recliner until about an hour later when he began to have a similar experience. He does not remember losing consciousness, he does not remember standing up and does not remember falling but he found himself on the floor having struck his head and having a laceration to his forehead. He came into the emergency room, he was noted to be bradycardic (usual HR's in the 50's while on Metoprolol) and he was hypertensive. He was admitted and his Metoprolol was held. An Echocardiogram 09/13/20 shows normal left ventricular systolic function with moderate concentric left ventricular hypertrophy and ejection fraction of 55% to 60%. He has had no further symptomatic events or any significant bradycardia during this hospitalization. Since stopping Metoprolol his HR have been 100 to 120 bpm depending on what he is doing. Telemetry has not demonstrated any evidence of AV block, cardiac pauses, ventricular arrhythmias, etc which would account for his syncopal event. Patient met with Dr. Fleming this morning -- he will either place a dual chamber pacemaker tomorrow afternoon vs a cardiac loop recorder. Patient is leaning toward a pacemaker. Patient offer no complaints today, he has been ambulating in his room, took a shower, etc without limiting cardiopulmonary symptoms. No chest pain, SOB, or FERNANDEZ. he denies any lightheaded spells, weak spells, dizziness, or any further syncope. Review of Systems Review of Systems: All systems reviewed & are unremarkable except as noted in Subjective Physical Exam Physical Exam: GENERAL: Patient in no acute distress. HEENT: Abrasion/Laceration on left forehead. EOM's intact. Facies symmetric. No perioral cyanosis. NECK: No JVD. JVP is at the level of the clavicle sitting upright. Carotid upstrokes are + 2 bilaterally. No bruits are noted. CHEST/LUNGS: Clear to auscultation throughout all lung thompson. No wheezes, rales, or crackles. CVS: S1 and S2 are irregularly irregular and tachycardic at 110 bpm. No obvious murmurs, gallops, or rubs. PMI is nondisplaced. No lifts, heaves, or thrills. No abdominal aortic or renal bruits. ABDOMINAL EXAM: Bowel sounds are present. No masses, organomegaly, or tenderness. EXTREMITIES: No clubbing or cyanosis. No edema. Intact posterior tibial and radial pulses bilaterally. NEUROLOGIC EXAM: Patient is awake, alert, and oriented. Pleasant and cooperat joyce. Answers questions appropriately. Speech is clear. Normal movement in all 4 extremities. Gait pattern is unremarkable. TELEMETRY: -- A-Fib with V rates of 100 to 120 bpm. -- No evidence of AV block, cardiac pauses, ventricular arrhythmias, etc which would account for his syncopal event. Results & Data Results & Data ([facility]) Vital Signs (Past 12 Hours) Vital Signs Temp Pulse Pulse Pulse Resp BP Pulse Ox 09/15/20 12:20 37.1 C 92 H 20 131/85 96 09/15/20 07:30 102 H 09/15/20 07:27 36.5 C 81 18 133/93 97 09/15/20 04:00 36.5 C 75 18 173/77 H 96 Laboratory Results Laboratory Results - last 24 hr 09/14/20 09/14/20 09/15/20 16:48 20:22 06:03 WBC 6.58 RBC 4.74 Hgb 15.7 Hct 44.7 MCV 94.3 MCH 33.1 MCHC 35.1 RDW Std Deviation 42.2 RDW Coeff of Wali 12.3 Plt Count 180 MPV 10.0 Immature Gran % (Auto) 0.3 Neut % (Auto) 47.5 Lymph % (Auto) 37.7 Laporte % (Auto) 11.6 Eos % (Auto) 2.4 Baso % (Auto) 0.5 Neut # (Auto) 3.13 Lymph # (Auto) 2.48 [place]orte # (Auto) 0.76 H Eos # (Auto) 0.16 Baso # (Auto) 0.03 Immature Gran # (Auto) 0.02 Sodium Potassium Chloride Carbon Dioxide Anion Gap BUN Creatinine Est Cr Clr Drug Dosing Est GFR ( Amer) Est GFR (Non-Af Amer) BUN/Creatinine Ratio Glucose POC Glucose 159 H 206 H Calcium Magnesium 09/15/20 09/15/20 06:03 06:13 WBC RBC Hgb Hct MCV MCH MCHC RDW Std Deviation RDW Coeff of Wali Plt Count MPV Immature Gran % (Auto) Neut % (Auto) Lymph % (Auto) [place] % (Auto) Eos % (Auto) Baso % (Auto) Neut # (Auto) Lymph # (Auto) [place] # (Auto) Eos # (Auto) Baso # (Auto) Immature Gran # (Auto) Sodium 140 Potassium 4.7 D Chloride 106 Carbon Dioxide 32 Anion Gap 2.0 L BUN 15 Creatinine 0.83 Est Cr Clr Drug Dosing 94.0 Est GFR ( Amer) 101.2 Est GFR (Non-Af Amer) 87.3 BUN/Creatinine Ratio 18.5 Glucose 153 H POC Glucose 171 H Calcium 9.0 Magnesium 2.1 Diagnostic Findings CAROTID DUPLEX 09/13/20: 1. There is no sonographic evidence of hemodynamically significant stenosis in the right or left carotid arterial system. 2. Antegrade flow is shown in the vertebral arteries. CT SCAN HEAD 09/12/20: No intra or extra-axial mass lesions are visualized. There is no CT evidence of acute cortical infarction. There is no evidence of midline shift. There is no acute hemorrhage. No calvarial fractures are visualized. There are minor white matter hypodensities likely on a small vessel basis. There is no evidence of pathologic ventricular dilatation. There is no evidence of acute sinusitis IMPRESSION: No acute intracranial findings. CT SCAN FACE: -- There is no evidence of facial bone fracture. CT SCAN C-SPINE 09/12/20: -- No acute cervical spine fracture or subluxation. CXR 09/12/20: -- Mild cardiomegaly. Otherwise, no acute process within the chest. Medications Administered Medications acetaminophen 325 mg capsule 325 mg PO Q4H PRN #90 cap 02/05/19 [Rx Confirmed 09/12/20] sildenafil 50 mg tablet 50 mg PO DAILY PRN #10 tab 12/13/19 [Rx Confirmed 09/12/20] apixaban 5 mg tablet 5 mg PO BID #180 tab 12/14/19 [Rx Confirmed 09/12/20] metoprolol tartrate 100 mg tablet 100 mg PO BID #180 tab 12/14/19 [Rx Confirmed 09/12/20] simvastatin 40 mg tablet 40 mg PO QPM #90 tab 12/14/19 [Rx Confirmed 09/12/20] meclizine 25 mg tablet 25 mg PO TID PRN #30 tab 03/11/20 [Rx Confirmed 09/12/20] tramadol 50 mg tablet 50 mg PO TID PRN #90 tab 08/12/20 [Rx Confirmed 09/12/20] Home Medications Acetaminophen (Acetaminophen 325 Mg Tab) 650 mg PO Q4H PRN PRN Reason: Pain or Fever Stop: 10/12/20 20:18 Last Admin: 09/15/20 09:42 Dose: 650 mg Documented by: Apixaban (Apixaban 5 Mg Tablet) 5 mg PO BID MAGUI Stop: 10/12/20 20:59 Last Admin: 09/14/20 08:27 Dose: 5 mg Documented by: Artificial Tears (Artificial Tears) 1 drops OP PRN PRN PRN Reason: DRYNESS Stop: 10/14/20 20:28 Last Admin: 09/14/20 21:01 Dose: 1 drops Documented by: Bacitracin (Bacitracin Oint 0.9 Gm Pkt) 1 appln EXT BID PRN PRN Reason: face abrasion Stop: 10/12/20 20:18 Last Admin: 09/14/20 13:01 Dose: 1 appln Documented by: Cefazolin Sodium (Cefazolin 250 Mg/Ml 1 Gm Vial) 2,000 mg IV PREOP MAGUI; Protocol Stop: 09/16/20 18:00 Dextrose (Dextrose 50% 50 Ml Syringe) 25 - 50 ml IV UD PRN; Protocol PRN Reason: Hypoglycemia Protocol Stop: 10/12/20 20:18 Glucagon (Glucagon For Inj 1 Mg Vial) 1 mg SQ UD PRN; Protocol PRN Reason: Hypoglycemia Protocol Stop: 10/12/20 20:18 Glucose (Glucose 10 Tabs/Tube) 4 - 8 tabs PO UD PRN; Protocol PRN Reason: Hypoglycemia Protocol Stop: 10/12/20 20:18 Glucose (Glucose 40% Gel 15 Gm Tube) 15 - 30 gm PO UD PRN; Protocol PRN Reason: Hypoglycemia Protocol Stop: 10/12/20 20:18 Lactated Ringer's (Lr) 1,000 mls @ 15 mls/hr IV .Q24H [facility] Stop: 09/19/20 00:39 Insulin Aspart (Insulin Aspart 100 Units/Ml 3 Ml Pen) 0 units SC ACHS MAGUI Stop: 10/12/20 20:18 Last Admin: 09/15/20 07:29 Dose: Not Given Documented by: Lidocaine (Lidocaine 5% 1 Patch) 1 patch TD QAM [facility] Stop: 10/13/20 08:59 Last Admin: 09/15/20 09:41 Dose: Not Given Documented by: Lisinopril (Lisinopril 5 Mg Tab) 5 mg PO QAM [facility] Stop: 10/14/20 08:59 Last Admin: 09/15/20 09:42 Dose: 5 mg Documented by: Metoprolol Tartrate (Metoprolol Tartrate 25 Mg Tab) 25 mg PO BID [facility] Stop: 10/13/20 08:59 Last Admin: 09/14/20 08:29 Dose: 25 mg Documented by: Miscellaneous (Carbohydrates For Hypoglycemia ) 15 - 30 gm PO UD PRN PRN Reason: Hypoglycemia Protocol Stop: 10/12/20 20:18 Miscellaneous (Remove Lidoderm Patch) 1 ea N/A DAILY@2100 [facility] Stop: 10/13/20 20:59 Last Admin: 09/14/20 21:00 Dose: 1 ea Documented by: Ondansetron HCl (Ondansetron Inj 2 Mg/Ml 2 Ml Vial) 4 mg IV Q6H PRN PRN Reason: Nausea Stop: 10/12/20 20:18 Simvastatin (Simvastatin 40 Mg Tab) 40 mg PO QPM MAGUI Stop: 10/12/20 20:59 Last Admin: 09/14/20 21:00 Dose: 40 mg Documented by: Tramadol HCl (Tramadol Hcl 50 Mg Tablet) 50 mg PO TID PRN PRN Reason: pain Stop: 10/12/20 20:18 Last Admin: 09/14/20 22:36 Dose: 50 mg Documented by: Zolpidem Tartrate (Zolpidem Tartrate 5 Mg Tab) 5 mg PO HS PRN PRN Reason: Sleep Stop: 10/14/20 15:54 Last Admin: 09/14/20 22:36 Dose: 5 mg Documented by: PG Care Time/CCT Total # of Minutes Spent Total Time Spent with Patient: Total time spent is greater than 50% in coordination of care (as documented) at patient's floor/unit and/or counseling patient:40 Coding Level of Care Code 51421 Subseq Hosp Care Lvl 3 Diagnoses Syncope R55 Syncope type: unspecified Atrial fibrillation, permanent I48.21 Bifascicular block I45.2 Hypertension I10 Hyperlipidemia E78.5 Hyperlipidemia type: unspecified Type 2 diabetes mellitus E11.9 Diabetes mellitus complication status: without complication 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
[2020-09-15] MEDS: SIMVASTATIN 40 MG TAB PO SCH (21:25)
[2020-09-15] MEDS: ZOLPIDEM TARTRATE 5 MG TAB PO PRN (22:01)
[2020-09-15] MEDS: BACITRACIN OINT 0.9 GM PKT EXT PRN (22:22)
[2020-09-16] MEDS ORDERED: LACTATED RINGER'S 1,000 ML IV SCH (06:00)
[2020-09-16] MEDS: INSULIN ASPART 100 UNITS/ML 3 ML PEN SC SCH ×4 (07:47→21:10)
[2020-09-16] MEDS: lisinopril 5 MG TAB PO SCH (08:57)
[2020-09-16] MEDS: LIDOCAINE 5% 1 PATCH TD SCH (08:58)
--- NOTE | 2020-09-16 09:36 | Hospitalist Progress Note ---
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 After his syncopal event, he came into the emergency room where he was noted to be bradycardic (usual HR's in the 50's while on Metoprolol) and he was hypertensive. He was admitted and his Metoprolol was held. An Echocardiogram 09/13/20 shows normal left ventricular systolic function with moderate concentric left ventricular hypertrophy and ejection fraction of 55% to 60%. He has not had any further symptomatic events or any significant bradycardia during this hospitalization. With bifascicular block he has evidence of underlying conduction disease. 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 -- Plan is to proceed with either a permanent dual chamber pacemaker vs a cardiac loop recorder this afternoon with Dr. Fleming. -- Patient appears to favor a dual chamber pacemaker. -- Hold Eliquis in preparation of this procedure. Patient will stay overnight tonight after having pacemaker implanted. -- Plan on discharging to home tomorrow. (2) Atrial fibrillation, permanent: -- Patient was noted to be bradycardic on admission (usual HR's in the 50's while on Metoprolol) and he was hypertensive. -- His Metoprolol continues to be held. -- He has had no further symptomatic events or any significant bradycardia during this hospitalization. -- He remains in A-Fib but his V-rate is better today (yesterday he was more tachycardic likely secondary to beta mook withdrawal). -- I suspect he will require a negative chronotropic agent to manage his rate in A-Fib - can initiate after pacemaker placed. -- alf anticoagulation with Eliquis, which is currently being held for his procedure this afternoon. (3) Bifascicular block: -- Longstanding, but this is evidence of underlying conduction disease. (4) Hypertension: -- Metoprolol tartrate is on hold due to bradycardia. -- Lisinopril 5 mg daily initiated. -- BP's are acceptable. (5) Hyperlipidemia: -- Continue Simvastatin 40 mg daily in the evening. (6) Type 2 diabetes mellitus: -- Continue Diabetic diet. -- Sliding scale insulin while hospitalized. -- Usually manages DM through diet and exercise. Admission and Anticipated Discharge Date Admission Date: September 14, 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 He was admitted on September 12, 2020 following a Syncopal Episode and a Profound Near Syncopal Episode. The first occurred while sitting at his kitchen table when he began to lose consciousness but did not completely lose consciousness, apparently began to fall forward but woke up before he hit the table. He had never experienced this before. That episode passed and he went upstairs and was in his recliner until about an hour later when he began to have a similar experience. He does not remember losing consciousness, he does not remember standing up and does not remember falling but he found himself on the floor having struck his head and having a laceration to his forehead. He came into the ER, he was noted to be bradycardic (usual HR's in the 50's while on Metoprolol) and he was hypertensive. He was admitted and his Metoprolol continues to be held. An Echocardiogram 09/13/20 shows normal left ventricular systolic function with moderate concentric left ventricular hypertrophy and ejection fraction of 55% to 60%. He has had no further symptomatic events or any significant bradycardia during this hospitalization. Telemetry overnight shows A-Fib with V-rates in the 70's and 80's, this morning's rates are in the 90's. Telemetry shows no evidence of AV block, cardiac pauses, ventricular arrhythmias, etc which would account for his syncopal event. Patient offer no complaints today, he has been ambulating in his room, etc without limiting cardiopulmonary symptoms. No chest pain, SOB, or FERNANDEZ. He sprecifically denies any lightheaded spells, weak spells, dizzy spells, or any syncope. Review of Systems Review of Systems: All systems reviewed & are unremarkable except as noted in Subjective Physical Exam Physical Exam: GENERAL: Patient in no acute distress. HEENT: Abrasion/Laceration on left forehead. EOM's intact. Facies symmetric. No perioral cyanosis. NECK: No JVD. JVP is at the level of the clavicle sitting upright. Carotid upstrokes are + 2 bilaterally. No bruits are noted. CHEST/LUNGS: Clear to auscultation throughout all lung thompson. No wheezes, rales, or crackles. CVS: S1 and S2 are irregularly irregular and tachycardic at 110 bpm. No obvious murmurs, gallops, or rubs. PMI is nondisplaced. No lifts, heaves, or thrills. No abdominal aortic or renal bruits. ABDOMINAL EXAM: Bowel sounds are present. No masses, organomegaly, or tenderness. EXTREMITIES: No clubbing or cyanosis. No edema. Intact posterior tibial and radial pulses bilaterally. NEUROLOGIC EXAM: Patient is awake, alert, and oriented. Pleasant and cooperative. Answers questions appropriately. Speech is clear. Normal movement in all 4 extremities. Gait pattern is unremarkable. TELEMETRY: -- A-Fib with V rates in the 70's and 80's overnight. This morning's rates are in the 90's. -- Occasional PVC's. -- No evidence of AV block, cardiac pauses, ventricular arrhythmias, etc. Results & Data Results & Data ([facility]) Vital Signs (Past 12 Hours) Vital Signs Temp Pulse Pulse Resp BP Pulse Ox 09/16/20 00:33 36.4 C L 68 16 139/81 96 09/15/20 23:45 70 PG Care Time/CCT Total # of Minutes Spent Total Time Spent with Patient: Total time spent is greater than 50% in coordination of care (as documented) at patient's floor/unit and/or counseling patient: Coding Level of Care Code 65211 Subseq Hosp Care Lvl 3 Diagnoses Syncope R55 Syncope type: unspecified Atrial fibrillation, permanent I48.21 Bifascicular block I45.2 Hypertension I10 Hyperlipidemia E78.5 Hyperlipidemia type: unspecified Type 2 diabetes mellitus E11.9 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
[2020-09-16] MEDS ORDERED: ACETAMINOPHEN 1,000 MG/100 ML VIAL IV PRN (09:50)
[2020-09-16] MEDS ORDERED: BACITRACIN INJ 50,000 UNIT VIAL ONE (12:23)
[2020-09-16] MEDS ORDERED: BACITRACIN OINT 0.9 GM PKT ONE (12:23)
[2020-09-16] MEDS ORDERED: LIDOCAINE HCL 1% 20 ML VIAL ONE ×2 (12:23→14:13)
[2020-09-16] MEDS ORDERED: fentaNYL citrate 100 MCG/2 ML VIAL ONE (13:04)
[2020-09-16] MEDS ORDERED: MIDAZOLAM HCL 5 MG/ML 1 ML VIAL ONE (13:04)
--- NOTE | 2020-09-16 13:15 | Cardiology Progress Note ---
Date of Service September 16, 2020 Assessment & Plan (1) Syncope: The cause of his syncope remains unclear. It was likely an arrhythmia, likely bradycardia it may in part have been due to beta-blockade although with his history of bifascicular block intermittent complete heart block is also a p ossibility. We have discussed various options including loop recorder placement and with holding beta-blockade (although he has a history of cardiomyopathy and may need beta-blockade, additionally he may need rate control for his atrial fibrillation) versus implantation of a pacemaker. Clinically I believe either way is acceptable. He would prefer to have the pacemaker in place and evidently has talked to his family about it and they are in agreement. He is concerned about the location of the device affecting his golf swing, and my experience that has not been an issue with normal placement where I put it. I discussed the indications, procedure, risks and alternatives of pacemaker implantation with him and he understands and agrees to proceed. I also discussed sedation with him and he is in agreement. (2) Atrial fibrillation: He is likely in permanent atrial fibrillation I would not make an attempt to convert the rhythm. It is conceivable that he had postconversion pauses as a cause of his syncope, even so a single-chamber pacemaker should be acceptable as he would have minimal pacing. I will therefore plan on a single-chamber device. Admission and Anticipated Discharge Date Admission Date: September 14, 2020 Subjective He remains asymptomatic with his rhythm, no lightheadedness, dizziness, palpitations, presyncope or syncope since admission. He is complaining of having difficulty sleeping. Physical Exam Physical Exam: Constitutional: Alert, cooperative and in no distress. HEENT: Unremarkable Neck: No jugular venous distention, carotid pulses are irregular but otherwise normal and equal bilaterally without bruits. Pulmonary: Clear to auscultation bilaterally. Cardiac: Irregular rhythm with no murmur, gallop or rub. Abdomen: Soft, nontender with normal bowel sounds. Extremities: No edema. Distal pulses intact. Neurologic: No focal findings. Gait is steady. Skin: No rash, ecchymoses or petechiae. Results & Data ([facility]) Vital Signs (Past 12 Hours) Vital Signs Temp Pulse Pulse Resp BP Pulse Ox 09/16/20 12:51 36.5 C 87 20 134/92 96 09/16/20 11:35 36.5 C 85 20 142/91 H 96 09/16/20 09:26 108 H Laboratory Results Intake and Output 09/15/20 09/16/20 09/16/20 22:59 06:59 14:59 Intake Total 240 / 515 100 / 100 Balance 240 / 515 100 / 100 Intake: IV 100 / 100 Acetaminophen 1,000 mg In 100 100 / 100 ml @ 400 mls/hr IV Q8H PRN Rx#: [id number] Oral 240 / 515 Other: Other Intake Source Npo # Unmeasured Voids 2 Weight 92.6 kg Weight Measurement Method Built in [facility] Diagnostic Findings Telemetry: Atrial fibrillation, heart rate gradually increasing, still not excessively fast although greater than 100 while active during the day. No significant bradycardia over the last 24 hours. PG Care Time/CCT Total # of Minutes Spent Total Time Spent with Patient: Total time spent is greater than 50% in coordination of care (as documented) at patient's floor/unit and/or counseling patient: Coding Level of Care Code 97127 Subseq Hosp Care Lvl 3 Diagnoses Syncope R55 Syncope type: unspecified Atrial fibrillation I48.11 Atrial fibrillation type: longstanding persistent (1) Syncope Syncope type: unspecified Qualified Code(s): R55 - Syncope and collapse (2) Atrial fibrillation Atrial fibrillation type: longstanding persistent Qualified Code(s): I48.11 - Longstanding persistent atrial fibrillation
--- NOTE | 2020-09-16 13:17 | Pre Anesthesia Assessment ---
Date of Service September 16, 2020 Pre Sedation Assessment Vital Signs Temp Pulse Pulse Pulse Resp BP Pulse Ox 09/16/20 12:51 36.5 C 87 20 134/92 96 09/16/20 11:35 36.5 C 85 20 142/91 H 96 09/16/20 09:26 108 H 09/16/20 00:33 36.4 C L 68 16 139/81 96 09/15/20 23:45 70 09/15/20 19:32 36.3 C L 78 18 137/81 96 09/15/20 15:28 78 09/15/20 15:23 36.7 C 82 18 121/81 94 Cardiovascular + irregularly irregular Respiratory normal respiratory effort, lungs clear to auscultation Pre-Sedation Airway Assessment Smoking Status: Current every day smoker Hx Sleep Apnea: No Short, Thick Neck: No Thyromental Distance: > or= 3.5 Finger Breadths Oral Cavity: + WNL Mallampati Class: III ASA: ASA2 NPO Status Date of Last Intake of Fluids: 09/15/20 Time of Last Intake of Fluids: 19:00 Date of Last Intake of Solid Food: 09/15/20 Time of Last Intake of Solid Foods: 19:00 Procedure Planning Contraindications for Sedation: none Current Medications Reviewed: Yes Notes The planned sedation has been discussed with the patient. Informed Consent was obtained. I have identified the patient, determined the appropriateness of sedation and have assessed the patient immediately prior to the procedure. All medicine(s) and interventions are by my order.
--- NOTE | 2020-09-16 15:13 | Electrophysiology Report ---
Date of Service September 16, 2020 Electrophysiology Procedure Electrophysiology Procedure Report Preoperative diagnosis: Symptomatic bradycardia, permanent atrial fibrillation Postoperative diagnosis: Same Procedure: Single-chamber pacemaker implantation Surgeon: Mitchell Fleming MD Anesthesia: Local with sedation Estimated blood loss: 20 cc Complications: None Specimens: None Disposition: [place] recovery: Procedure details: After obtaining informed consent for the procedure, the patient was brought to the laboratory and prepped and draped in the standard sterile manner. Dye was injected the left arm IV site to opacify the left subclavian vein. The subclavian vein was identified and found to be free of obstruction. The left prepectoral region was anesthetized with 1% lidocaine local anesthetic and left axillary venipuncture was performed by percutaneous technique and a guidewire placed through the left subclavian vein into the superior vena cava. The area was further infiltrated with 1% lidocaine local anesthetic and a 5 cm incision was made parallel to the left clavicle and 2 cm below it and carried down to the anterior pectoralis fascia. A pacemaker pocket was formed by blunt dissection anterior to the pectoralis fascia and a bacitracin-soaked sponge (50,000 units in 50 cc normal saline solution) was placed in the pocket. An 7 [place] Medtronic lead introducer was placed over the guidewire into the left subclavian vein, the dilator and guidewire were removed and a C315 guide sheath was advanced over a guidewire to position in the right ventricle. This sheath was oriented toward the septum, the lead was advanced through the sheath into position in the septum and then rotated fixing the lead in position. Pacing and sensing thresholds were evaluated in bipolar configuration and are recorded on the implant data sheet. Diaphragmatic pacing was evaluated as noted on the data sheet. The sheath system was removed from the lead. Once the lead was in position it was attached to the anterior pectoralis fascia using 2 sutures of 2-0 silk around the lead collar. The bacitracin-soaked sponge was removed from the pocket, hemostasis was obtained, the pacemaker was attached to the lead and placed in the pocket with the lead coiled beneath it. The i ncision was closed with a running double subcutaneous closure of 3-0 Vicryl absorbable suture, followed by running subcuticular skin closure of 4-0 Vicryl absorbable suture. Bacitracin ointment was placed on the incision and a dressing applied. [facility] Electrophysiology codes Pacing Procedure 1: Pacin Insert/Replace Pacer V Miscellaneous Procedures Procedure 1: EP Miscellaneous: 02224 Contrast injection for venography Procedure 2: EP Miscellaneous: 40423-24 Vengraphy, extremity PG Moderate Sedation Codes Moderate Sedation Codes Procedure 1: Sedation/Anesthesia: 02562 Mod Sedation by the same physician;Init15 Min Child Age 5 & Up Procedure 2: Sedation/Anesthesia: 75315 Mod Sedation by the same physician; Ea [id number] Minutes
[2020-09-16] MEDS: KETOROLAC TROMETHAMINE 10 MG TABLET PO PRN ×2 (16:48→23:12)
[2020-09-16] MEDS: traMADol HCL 50 MG TABLET PO PRN (18:12)
[2020-09-16] MEDS: SIMVASTATIN 40 MG TAB PO SCH (21:12)
[2020-09-16] MEDS: APIXABAN 5 MG TABLET PO SCH (21:17)
[2020-09-16] MEDS: METOPROLOL TARTRATE 25 MG TAB PO SCH (22:23)
[2020-09-17] MEDS: traMADol HCL 50 MG TABLET PO PRN (06:17)
--- NOTE | 2020-09-17 06:51 | XRay Report ---
XR chest 2V PA/lateral HISTORY: 75 years-old Male EXACT TIME ORDERED Evaluate for pneumothorax and l status post placement of a left subclavian pacer COMPARISON: 09/12/2020 TECHNIQUE: PA and lateral views of the chest FINDINGS: Cardiac silhouette is upper limits of normal in size. Status post placement of a single lead left sub clavian pacer. The visualized lead appears intact. No postprocedural pneumothorax. No pleural effusio n, airspace consolidation or overt pulmonary edema. Nipple shadows project over the lung bases. Degen erative changes of the shoulders and spine. Limited lateral view secondary to upper extremity positio silvia. IMPRESSION: Status post placement of a single lead left subclavian pacer. No postprocedural pneumotho rax. ACT 112: Negative or not required by law. The above report was generated using voice recognition software. It may contain grammatical, syntax o r spelling errors. Electronically signed by: Tanner Colon M.D. 09/17/2020 6:50 AM
[2020-09-17] MEDS: INSULIN ASPART 100 UNITS/ML 3 ML PEN SC SCH (08:40)
[2020-09-17] MEDS: METOPROLOL TARTRATE 25 MG TAB PO SCH (08:42)
[2020-09-17] MEDS: lisinopril 5 MG TAB PO SCH (08:43)
[2020-09-17] MEDS: LIDOCAINE 5% 1 PATCH TD SCH (08:44)
--- NOTE | 2020-09-17 09:48 | Post Anesthesia Assessment ---
Date of Service September 17, 2020 Post Sedation Assessment Vital Signs Temp Pulse Pulse Pulse Resp BP BP 09/17/20 08:06 36.6 C 63 18 159/112 H 147/104 H 09/17/20 04:16 36.8 C 61 18 165/104 H 09/16/20 23:05 36.5 C 72 18 160/99 H 09/16/20 19:30 36.9 C 76 18 120/70 09/16/20 19:21 82 09/16/20 16:29 76 20 125/73 09/16/20 15:59 66 18 125/73 09/16/20 15:44 79 20 136/57 L 09/16/20 15:29 88 20 145/90 H 09/16/20 15:27 81 20 155/98 H 09/16/20 15:15 86 20 148/98 H 09/16/20 15:14 36.7 C 75 20 178/76 H 09/16/20 12:51 36.5 C 87 20 134/92 09/16/20 11:35 36.5 C 85 20 142/91 H Pulse Ox 09/17/20 08:06 97 09/17/20 04:16 95 09/16/20 23:05 95 09/16/20 19:30 96 09/16/20 19:21 09/16/20 16:29 96 09/16/20 15:59 98 09/16/20 15:44 96 09/16/20 15:29 98 09/16/20 15:27 98 09/16/20 15:15 95 09/16/20 15:14 96 09/16/20 12:51 96 09/16/20 11:35 96 Recovery Score Activity: Moves 4 extremities Respiration: Deep Breath/Cough Circulation: +/-20% PreAnes Value Consciousness: Fully Awake Oxygen Saturation: > 92% On Room Air Post Anesthesia Score: 10 Discharge Sedation Level of Care: Fast Track Phase II Post Sedation Plan On clinical assessment, the patient appears to have tolerated the sedation without complications. Patient is recovering as anticipated. Patient will continue to be monitored by nursing and may be discharged when sedation discharge criteria are met per below protocol. Upon Completions of procedure up to 15 minutes continue every 5 minute vital signs and the P.A.R. score; then discharge to a Phase I or Fast Track to Phase II per the following guidelines: * Discharge Patient to appropriate Phase II area if PAR is 8 or greater or return to pre- procedure baseline. The post - procedure orders will be as directed. * If PAR score is less than 8 or not return to pre-procedure baseline then patient will follow Phase I monitoring till PAR is reached for Phase II. The Phase I may be done in procedure room or may call to secure a Phase I area. * If naloxone or flumazenil are used for reversal, hold in Phase I for continued monitoring from when last reversal dose was given for a minimum of 60 minutes or longer pending the nurse and/or physician discretion of patient condition before discharge to Phase II. Please call the Sedation Physician to re-evaluate and complete post-note for discharge to Phase II area. Do NOT discharge from procedure sedation or Phase 1 until post- sedation evaluation note is complete by procedure /sedation MD Sedation Discharge Instructions to be given to the patient at discharge to home.
[2020-09-17] MEDS: APIXABAN 5 MG TABLET PO SCH (09:54)
--- NOTE | 2020-10-02 16:37 | Discharge Summary ---
Date of Service September 17, 2020 Admission HPI Per Admitting Provider 75 YOM with past medical history of HLD, AFib on Apixaban, Basal Cell Carcinoma, and squamous cell carcinoma of the skin; Cardiomyopathy thought to be attributed to tachycardia, that is listed as resolved. Patient is occasional smoker of cigarrets, and occasional marijuana use. His last use of marijuana was on Tuesday of this week. Patient came to the emergency room today after calling 911 because he experienced 2 episodes of passing out today. Patient describes the first episode while he was eating breakfast, that he just starting feeling "weird" like his brain was getting fuzzy and then his vision became very blurry and per his , he had a slow decent with his head forward down to the table and he came to. He denied any hot feelings, auras, change in smell or taste with these or loss of bowel or bladder and denied any seizure like activity. He did not want to come to the emergency room after that episode so he went upstairs to work on his computer. This was about 2 hours after his previous episode, he felt the feeling coming on again, with brain feeling fuzzy and vision blurring, he tried sitting up in the chair and next thing he remembers is being on the floor with blood on the carpet. He got up and called 911 and came to the emergency room. In the emergency room, he had an ECG done, head CT, face CT, cervical CT, and a chest X-ray done. Dr. Veras spoke with cardiology Dr. Zhang as well. He has a laceration to his left face that will be require sutures and is being done in the EMD. The patient denies any actual loss of vision or fugax occurring, that everything just got too blurry to see, he has an abrasion as well to his left face and left trapezius muscle pain. His cervical spine was cleared CT and clinically. Patient will be admitted to telemetry unit, hold his BB, cardiology consult and continue to monitor. 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, tachy-santiago syndrome, bifascicular block Discharge Exam Constitutional WD/WN, vitals as above Neck trachea midline, no thyromegaly Respiratory normal respiratory effort, lungs clear to auscultation Cardiovascular Rate/Rhythm: regular rate and + irregularly irregular Heart Sounds: normal S1 and normal S2; no murmur Vessels: no JVD Extremities: normal capillary refill; no edema Gastrointestinal (Abdomen) normal bowel sounds, soft, nontender, no hepatosplenomegaly Musculoskeletal no cyanosis or clubbing, extremities motor strength 5/5 Skin no rashes, warm and dry Neurologic patellar DTR's 2+ bilat, sensation intact and PERRL, EOMI, accommodation nl, no face palsy, no dysarthria Psychiatric A+Ox3, euthymic affect Lymphatic no cervical or axillary lymphadenopathy Discharge Data Allergies Allergy/AdvReac Type Severity Reaction Status Date / Time No Known Allergies Allergy Unknown Verified 09/26/20 15:56 Consultations 09/12/20 14:31 ED Decision to Admit Stat 09/12/20 20:19 Consult Cardiology Routine 09/15/20 06:00 Consult Cardiology Routine Procedures Performed Operation Date: 09/16/20 13:00 Actual Procedures p Pacer with Ventricular Lead - Mitchell Fleming MD s Venogram, Unilateral - Mitchell Fleming MD s Bundle of his Recording - Mitchell Fleming MD Ordered Studies 09/12/20 12:41 CT cervical spine wo con Stat CT facial bones wo con Stat CT head/brain wo con Stat 09/13/20 12:05 US carotid doppler BI Routine 09/16/20 12:47 CL Cath Imgs for PACS use only Routine Hospital Course (1) Syncope: (1) 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 After his syncopal event, he came into the emergency room where he was noted to be bradycardic (usual HR's in the 50's while on Metoprolol) and he was hypertensive. He was admitted and his Metoprolol was held. An Echocardiogram 09/13/20 shows normal left ventricular systolic function with moderate concentric left ventricular hypertrophy and ejection fraction of 55% to 60%. He has not had any further symptomatic events or any significant bradycardia during this hospitalization. With bifascicular block he has evidence of underlying conduction disease. 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 -- permanent single chamber pacemaker placed by Dr. Fleming on 09/16 doing well this morning, CXR shows no pneumothorax, no chest pain, breathing well follow up with cardiology for pacer check (2) Atrial fibrillation, permanent: (2) Atrial fibrillation, permanent: -- Patient was noted to be bradycardic on admission (usual HR's in the 50's while on Metoprolol 100mg BID) and he was hypertensive. -- He has had no further symptomatic events or any significant bradycardia during this hospitalization. -- He remains in A-Fib, metoprolol resumed but at 25mg BID termite helper anticoagulation with Eliquis, resume now that pacer is placed (3) Bifascicular block: (3) Bifascicular block: -- Longstanding, but this is evidence of underlying conduction disease now with single chamber pacemaker (4) Hypertension: (4) Hypertension: -- Metoprolol resumed at 25mg BID -- Lisinopril 5 mg daily initiated. -- BP's are acceptable. (5) Hyperlipidemia: (5) Hyperlipidemia: -- Continue Simvastatin 40 mg daily in the evening. (6) Type 2 diabetes mellitus: (6) Type 2 diabetes mellitus: -- Continue Diabetic diet. -- Sliding scale insulin while hospitalized. -- Usually manages DM through diet and exercise. Total Time Total Time Spent Total Time Spent (In Minutes): 32 Total Time Includes: Examination of the Patient, Discharge Planning, Medication Reconciliation and Communication With Other Providers Discharge Plan Discharge Items Patient Disposition: Home - Self-Care Reason For Visit: SYNCOPE Discharge Diagnosis: 1. Syncope. 2. Bradycardia s/p Medtronic Cary XT SR MRI Single Chamber Pacemaker. 3. Permanent A-Fib. 4. Hypertension. Condition on Discharge: Good Health Concerns: -- Post Pacemaker Wound Care. -- Left Upper Extremity Movement Restriction. Activity: Per Instructions section Activity Comment: Limited Left Arm/Shoulder Movement to allow right ventricular lead to heal. Sexual Activity: When tolerated Exercise/Sports: Wait until after follow-up appointment Exercise Comment: May walk/do aerobic activities as tolerated. Driving/Machine Use: 6 months as per [place] Law Weightbearing: Full weightbearing Non-emergency contact: Primary Care Provider and Track Laminating Machine Tender Call non-emergency contact if: you have any medication questions, your pain is not controlled, your pain is worsening, your pain is concerning for you, you have a fever, your temperature is above 101, your wound has increased redness, your wound has increased drainage and your wound pain has increased Follow-up/Referrals: Maxi Garza PA-C [Physician Tangled Yarn Worker] - 09/19/20 9:00 am Mitchell Fleming MD [Physician] - 10/08/20 ProFabian MD [Primary Care Provider] - 09/26/20 3:00 pm Diet: Other - See Diet Comment Diet Comment: Heart healthy, diabetic diet Addtl Attending Provider Instructions: 1. [place] [facility] [place] at 9:00 a.m.. 2. Follow-up, Pac[place] [facility] with Maxi Garza PA-C/Dr. Fleming. 3. Both of these appointments are at [facility] [place] [place] [address] [place] [address]. 4. Call [phone] if you need to change any of these appointments. ACTIVITY RECOMMENDATIONS: * Do not raise affected arm over head for 2 weeks. SPECIAL CARE INSTRUCTIONS: * If bleeding occurs, apply direct pressure to area for 5 minutes. * Call your doctor if you have severe pain, fever, drainage or bleeding at site. * Keep dressing on and dry for 48 hours then remove. * Keep any scheduled doctor's appointment. * Implant Card - hand held device with website information given. SKIN IRRITATION: * You may experience some redness and/or swelling in the area where radiation was administered. If any skin irritation occurs, please contact your family physician. FOLLOW UP VISIT: Keep any scheduled doctor appointments. Pending Studies at Discharge: No Stand-Alone Forms: My [facility], Smoking Cessation Medications and DC Order Prescriptions: New metoprolol tartrate 25 mg Tablet 25 mg PO BID 30 Days Qty: 60 RF: 3 lisinopril [Zestril] 5 mg Tablet 5 mg PO QAM 30 Days Qty: 30 RF: 3 Continued acetaminophen [Tylenol] 325 mg capsule 325 mg PO Q4H PRN (Reason: pain) Qty: 90 RF: 0 sildenafil [Viagra] 50 mg tablet 50 mg PO DAILY PRN (Reason: sexual activity) Qty: 10 RF: 0 Eliquis 5 mg tablet 5 mg PO BID Qty: 180 RF: 3 simvastatin 40 mg tablet 40 mg PO QPM Qty: 90 RF: 3 tramadol 50 mg tablet 50 mg PO TID PRN (Reason: pain) Qty: 90 RF: 0 meclizine 25 mg tablet 25 mg PO TID PRN (Reason: dizziness) Qty: 30 RF: 0 Discontinued metoprolol tartrate 100 mg tablet 100 mg PO BID Qty: 180 RF: 3 Discharge Orders: Discharge Order (Routine); Ordered 09/17/20 Ordered By: Christian Fink/Other Patient Handouts: Living with a Pacemaker, Managing Type 2 Diabetes, 5 Steps for Eating Healthier, Managing Diabetes: The A1C Test, Metoprolol tablets, Lisinopril tablets Admission Data Admit Date/Time: 09/14/20 15:41 Attending Provider: Christian Yip Admit Provider: Ino Bridges Primary Care Provider: Fabian Tracy Other Providers: Ricco Aragon ; Ableardo Zhang ; Mitchell Fleming Other Interventions: Discharge Summary Assessment (RN) Last Done: 09/17/20 11:08 Coding Level of Care Code D/C Day Management >30 mins Diagnoses Syncope R55 Syncope type: unspecified Atrial fibrillation, permanent I48.21 Bifascicular block I45.2 Hypertension I10 Hyperlipidemia E78.5 Hyperlipidemia type: unspecified Type 2 diabetes mellitus E11.9 Diabetes mellitus complication status: without complication Diabetes mellitus jail insulin use: without intermediate school teacher use
== END 2020-09-17 12:05 | disposition home or self-care (01) | DRG 244 ==
LOC: 2N 12:07 → ED 12:07 → SUATTDRO 15:50 → 2N 19:27 → SUATTDRO 09-14 15:41 → 2S 09-16 15:39
DX: K57.90 Diverticulosis of intestine, part unspecified, without perforation or abscess without bleeding; I10 Essential (primary) hypertension; F17.210 Nicotine dependence, cigarettes, uncomplicated; I42.9 Cardiomyopathy, unspecified; I95.89 Other hypotension; G89.29 Other chronic pain; Y92.009 Unspecified place in unspecified non-institutional (private) residence as the place of occurrence of the external cause; S01.81XA Laceration without foreign body of other part of head, initial encounter; S20.229A Contusion of unspecified back wall of thorax, initial encounter; M54.5 Low back pain; E11.9 Type 2 diabetes mellitus without complications; E78.5 Hyperlipidemia, unspecified; M16.10 Unilateral primary osteoarthritis, unspecified hip; Z96.649 Presence of unspecified artificial hip joint; I48.21 Permanent atrial fibrillation; W01.190A Fall on same level from slipping, tripping and stumbling with subsequent striking against furniture, initial encounter; Z85.828 Personal history of other malignant neoplasm of skin; R00.1 Bradycardia, unspecified; I45.2 Bifascicular block